=== PATIENT | female | born 1960 | race Two or more races ===

== ENCOUNTER → 2024-06-26 | Outpatient (CLI) | payer MEDICAID, SELFPAY ==
--- NOTE | 2024-06-26 13:22 | XR_ITS ---
Examination: Nuclear medicine kidney imaging flow and function multiple studies Exam date and time: June 26, 2024 1252 hours INDICATIONS: Lower back pain flank pain history right kidney stones removed October 2023 renal insufficiency TECHNIQUE AND FINDINGS: Intravenous ministration 10.5 mCi of MAG3 with flow and function curves generated to 60 minutes Intravenous Lasix 20 mg given 20 minutes after the MAG3 injection Normal flow and function left kidney Mildly reduced flow right kidney, adequate renal function No Lasix effect IMPRESSION: Normal flow and function left kidney Mildly reduced flow right kidney, adequate right renal function
[2024-06-26 14:03] VITALS: BP 151/89; PULSE 69
[2024-06-26] MEDS: FUROSEMIDE INJ 10 MG/ML 4ML VIAL 40 MG IVP (14:03)
== END | disposition home or self-care (01) ==
PROVIDERS: PCP Urology; Referring Provider Urology; Visit Provider Urology
DX: N28.89 Other specified disorders of kidney and ureter (principal)
CPT/HCPCS: 78708; A9562; J1940

== ENCOUNTER 2024-08-20 13:56 | Emergency (ER) | payer MEDICAID, SELFPAY ==
--- NOTE | 2024-08-20 16:32 | PD.EDADULT ---
ED General RME/HPI General Time Seen by Provider: 08/20/24 16:21 Source: patient Arrival date/time: 08/20/24 13:56 89-year-old female presents to the ED with complaint of blood sugars at home she is 15 with a headache and dizziness and examined. Began 4 days ago. Mode of arrival: ambulatory Limitations: no limitations RME / HPI Onset (ago): day(s) (4 days) Severity: moderate Related Data Home Medications ?Medication ?Instructions ?Recorded ?Confirmed atenolol 50 mg tablet 50 mg PO QDAY 09/16/23 09/16/23 empagliflozin 25 mg tablet 25 mg PO QAM 09/16/23 09/16/23 (Jardiance) losartan 100 mg tablet 100 mg PO QDAY 09/16/23 09/16/23 sitagliptin phos 50 mg-metformin 1 tab PO BID 09/16/23 09/16/23 ER 1,000 mg tablet,extend rel 24h mp (Janumet XR) sodium bicarbonate 650 mg tablet 650 mg PO TID 09/16/23 09/16/23 Previous Rx's ?Medication ?Instructions ?Recorded ciprofloxacin HCl 500 mg tablet 500 mg PO BID #14 tabs 09/17/23 (Cipro) ciprofloxacin HCl 500 mg tablet 500 mg PO BID #14 tabs 09/17/23 (Cipro) hydrocodone 5 mg-acetaminophen 325 1 tab PO Q6H PRN pain #30 tabs 09/17/23 mg tablet hydrocodone 5 mg-acetaminophen 325 1 tab PO Q6H PRN pain #30 tabs 09/17/23 mg tablet phenazopyridine 200 mg tablet 200 mg PO TID 6 doses #6 tabs 09/18/23 (Pyridium) sulfamethoxazole 800 1 tab PO BID #14 tabs 12/03/23 mg-trimethoprim 160 mg tablet (Bactrim DS) Allergies Allergy/AdvReac Type Severity Reaction Status Date / Time ampicillin Allergy Severe Hives Verified 12/03/23 15:24 Review of Systems Constitutional Constitutional: Reports system reviewed and no additional complaints, except as documented Eyes Eyes: Reports system reviewed and no additional complaints, except as documented, Denies dry eyes, Denies exophthalmos and Reports floaters Cardiovascular Cardiovascular: Denies chest pain with activity and Denies claudication ED Exam General Limitations: Present no limitations General appearance: Present alert and in no apparent distress Head Head exam: Present atraumatic Eye Eye exam: Present normal appearance, PERRL and EOMI ENT ENT exam: Present normal exam, normal oropharynx and mucous membranes moist Neck Neck exam: Present normal inspection, full ROM and trachea midline Chest Chest inspection: Present normal inspection and symmetric chest wall rise Respiratory Respiratory exam: Present normal lung sounds bilaterally Cardiovascular Cardiovascular exam: Present regular rate, normal rhythm and normal heart sounds Abdominal Exam Abdominal exam: Present soft and normal bowel sounds Rectal Exam Rectal exam: Present deferred Extremities Exam Extremities exam: Present normal inspection and full ROM Back Exam Back exam: Present normal inspection and full ROM Neurological Exam Neurological exam: Present alert, oriented X3 and CN II-XII intact Psychiatric Psychiatric exam: Present normal affect and normal mood Skin Skin exam: Present warm, dry, intact and normal color Course Course Course Narrative: Patient wrapped saline IV as well as 30 mL. Patient will be rechecked with a Accu-Chek. Quality Measures none Orders Category Date Time Status Basic Metabolic Panel Stat Lab 08/20/24 14:45 Completed CBC Stat Lab 08/20/24 14:45 Completed Urinalysis Stat Lab 08/20/24 14:45 Completed Ketorolac Inj [Toradol Inj] Med 08/20/24 16:50 Discontinued 30 mg .ROUTE .STK-MED ONE Ketorolac Inj [Toradol Inj] Med 08/20/24 16:47 Discontinued 30 mg IM X1 ONE Sodium Chloride 0.9% 1000 ml [Ns] 1,000 ml Med 08/20/24 16:45 Discontinued IV Wide Open mls/hr Discharge Plan Plan Patient Disposition: HOME (Self Care) Discharge Disposition comment: Patient will be discharged in no apparent distress Patient condition on transfer: Stable Prescriptions/Referrals Prescriptions/Med Rec: No Action sodium bicarbonate 650 mg Tablet 650 mg PO TID losartan 100 mg Tablet 100 mg PO QDAY atenolol 50 mg Tablet 50 mg PO QDAY Janumet XR 50-1,000 mg Tablet, Er Multiphase 24 Hr 1 tab PO BID Jardiance 25 mg Tablet 25 mg PO QAM hydrocodone-acetaminophen 5-325 mg tablet 1 tab PO Q6H MDD 4 PRN (Reason: pain) Qty: 30 0RF ciprofloxacin HCl [Cipro] 500 mg tablet 500 mg PO BID Qty: 14 0RF hydrocodone-acetaminophen 5-325 mg tablet 1 tab PO Q6H MDD 4 PRN (Reason: pain) Qty: 30 0RF ciprofloxacin HCl [Cipro] 500 mg tablet 500 mg PO BID Qty: 14 0RF phenazopyridine [Pyridium] 200 mg tablet 200 mg PO TID Qty: 6 0RF sulfamethoxazole-trimethoprim [Bactrim DS] 800-160 mg tablet 1 tab PO BID Qty: 14 0RF Referrals: Refugio Amato MD [Primary Care Provider] - In 1 week Problem List Clinical Impression: Hyperglycemia Patient/Caregiver Discharge Instructions Discharge Activity: activity as tolerated Print Language: Persian Stand Alone Forms: Kajal Award Info., Patient Portal Info Letter PA/APPOINTMENT SPECIALIST Supervising Physician PA/APPOINTMENT SPECIALIST Supervising Physician: MANDEEP MARTINEZ MDM Narrative MDM hospital course (for use when minimal MDM required): Patient had a liter of normal saline which significantly lowered her blood sugar down to 05/06/1930. Patient will be discharged to home in no apparent distress. Note that the patient had Toradol which helped with the headache but it did not completely remove it. Clinical Information Provided by: patient Medical Records reviewed None Medical Records additional comments: N/A Meds/Rx considered, not ordered None describe: N/A Labs/Rad/Tests considered, not ordered None Chronic Illness/Social Conditions which may negatively complicate care or outcome(s)-explain: other (Diabetes, hypertension) EKG EKG not done Labs Labs: interpreted by mi Lab(s) Interpretation(s): CBC, CMP, UA Medication Administration(s) Medication Administration History Discontinued Medications Sodium Chloride (Ns) 1,000 mls @ 0 mls/hr IV .Q0M ONE Stop: 08/20/24 16:46 Ketorolac Tromethamine (Ketorolac Inj 30 Mg/Ml Vial) Confirm Administered Dose 30 mg .ROUTE .STK-MED ONE Stop: 08/20/24 16:51 Ketorolac Tromethamine (Ketorolac Inj 30 Mg/Ml Vial) 30 mg IM X1 ONE Stop: 08/20/24 16:48
[2024-08-20] MEDS: SODIUM CHLORIDE 0.9% 1000 ML 1,000 ML 999 ML IV (16:45)
[2024-08-20 17:07] LABS: Collection Type, Urine Clean Catch
[2024-08-20 17:10] LABS: Bilirubin,Urine Negative (Negative); Blood,Urine Trace (Negative); Clarity,Urine Clear (Clear/Hazy); Color,Urine Lt-Yellow (Lt Yel-Yel); Glucose, Urine 4+ (Negative); Ketones,Urine Negative (Negative); Leukocyte Esterase,Urine Negative (Negative); Nitrite,Urine Negative (Negative); Protein,Urine Negative (Neg - Trace); RBC,Urine 1 /hpf (0-3); Specific Gravity,Urine 1.032 (1.001-1.035); Squamous Epithelial Cell,Urine 2 /hpf (0-5); Urobilinogen,Urine Negative mg/dL (0.0-1.0); WBC,Urine 3 /hpf (0-5)
[2024-08-20 17:13] LABS: Anion Gap 9 (7-16); BUN/Creatinine Ratio 13 Ratio (12-20); Blood Urea Nitrogen 15 mg/dL (9-23); Calcium 9.2 mg/dL (8.3-10.6); Carbon Dioxide 28.8 mMol/L (20.0-31.0); Chloride 102 mMol/L (98-107); Creatinine (Component) 1.2 mg/dL (0.6-1.3); Glucose 348 mg/dL (74-106); Osmolality,Calculated 294 (275-295); Potassium 3.9 mMol/L (3.4-5.1); Sodium 140 mMol/L (136-145); eGFR 51 See Note
[2024-08-20 17:14] LABS: Basophils # (Auto) 0.1 Thou/mm3 (0.0-0.2); Basophils % (Auto) 1 % (0-2.5); Eosinophils # (Auto) 0.1 Thou/mm3 (0.0-0.5); Eosinophils % (Auto) 1 % (0-10); Hematocrit 46.4 % (36.0-46.0); Hemoglobin 16.9 g/dL (12.0-16.0); Immature Granulocytes % (Auto) 0 % (0-0); Immature Granulocytes Auto 0.03 Thou/mm3 (0.00-0.00); Lymphocytes # (Auto) 2.4 Thou/mm3 (1.0-4.8); Lymphocytes % (Auto) 26 % (10-50); Mean Corpuscular HGB Conc 36.4 g/dl (31.0-37.0); Mean Corpuscular Hemoglobin 30.4 pg (25.0-35.0); Mean Corpuscular Volume 84 fL (80-100); Monocytes # (Auto) 0.7 Thou/mm3 (0.0-0.8); Monocytes % (Auto) 8 % (0-12); Neutrophils % (Auto) 64 % (37-80); Nucleated Red Blood Cell % 0 /100 WBC (0); Platelet Count 289 Thou/mm3 (140-440); RDW Standard Deviation 35.9 fL (36.4-46.3); Red Blood Count 5.56 Miln/mm3 (4.00-5.20); White Blood Count 9.4 Thou/mm3 (3.6-11.0)
--- NOTE | 2024-08-20 18:06 | PC.NURSE ---
MEDS GIVEN AND DOCUMENTED ON DOWNTIME PAPER WORK
[2024-08-21] MEDS: KETOROLAC INJ 30 MG/ML VIAL IM (14:57)
== END 2024-08-20 18:40 | disposition home or self-care (01) ==
PROVIDERS: Emergency Provider Emergency Medicine; PCP Family Medicine
DX: R73.9 Hyperglycemia, unspecified (principal)
CPT/HCPCS: 36415; 80048; 81001; 85025; 96372; 99284; J1885; J7030

== ENCOUNTER 2024-09-21 10:55 | Emergency (ER) | payer MEDICAID, SELFPAY ==
[2024-09-21 11:08] VITALS: BP 181/92; PULSE 81; RESP 18; TEMP 36.6; O2SAT 95; BMI 32.6
--- NOTE | 2024-09-21 11:18 | XR_ITS ---
Examination: PA lateral chest 2 views TECHNIQUE: Upright PA lateral chest 2 views Date and time: 05/24/1999 2525 hours INDICATIONS: Twisting injury to the chest with left-sided chest pain beginning 4 days ago FINDINGS: Accentuation bronchovascular markings. No significant cardiac enlargement No pneumothorax Prominent osteopenia Ribs and clavicles appear intact No acute thoracic fracture IMPRESSION: No pneumothorax. Basilar bronchitis pattern
--- NOTE | 2024-09-21 11:36 | PD.EDFALL ---
ED Fall Injury RME/HPI General Chief Complaint: Fall Stated Complaint: Pain under left breast/ left rib Time Seen by Provider: 09/21/24 11:08 Arrival date/time: 09/21/24 10:55 Limitations: no limitations RME / HPI RME / HPI Narrative: 64-year-old female with past medical history of hypertension and diabetes presents for evaluation of left chest wall pain x 3 days. She reports that she was bending over to clean a mini refrigerator when she felt a pop in her left rib cage. She describes the pain as constant aching that is focal to her left lower rib cage. She denies fever, hemoptysis, cough, chest pain, nausea, vomiting, weakness, tingling. She was evaluated by her primary care for this concern and was told she did not have a rib fracture. She is here today because her pain has not improved. She has been taking ibuprofen at home with no improvement in symptoms. Place fall occurred: home Loss of consciousness: none Related Data Home Medications ?Medication ?Instructions ?Recorded ?Confirmed atenolol 50 mg tablet 50 mg PO QDAY 09/16/23 09/16/23 empagliflozin 25 mg tablet 25 mg PO QAM 09/16/23 09/16/23 (Jardiance) losartan 100 mg tablet 100 mg PO QDAY 09/16/23 09/16/23 sitagliptin phos 50 mg-metformin 1 tab PO BID 09/16/23 09/16/23 ER 1,000 mg tablet,extend rel 24h mp (Janumet XR) sodium bicarbonate 650 mg tablet 650 mg PO TID 09/16/23 09/16/23 Previous Rx's ?Medication ?Instructions ?Recorded ciprofloxacin HCl 500 mg tablet 500 mg PO BID #14 tabs 09/17/23 (Cipro) ciprofloxacin HCl 500 mg tablet 500 mg PO BID #14 tabs 09/17/23 (Cipro) hydrocodone 5 mg-acetaminophen 325 1 tab PO Q6H PRN pain #30 tabs 09/17/23 mg tablet hydrocodone 5 mg-acetaminophen 325 1 tab PO Q6H PRN pain #30 tabs 09/17/23 mg tablet phenazopyridine 200 mg tablet 200 mg PO TID 6 doses #6 tabs 09/18/23 (Pyridium) sulfamethoxazole 800 1 tab PO BID #14 tabs 12/03/23 mg-trimethoprim 160 mg tablet (Bactrim DS) acetaminophen 325 mg tablet 325 mg PO QID PRN pain #30 tabs 09/21/24 (Aminofen) cyclobenzaprine 5 mg tablet 5 mg PO TID PRN muscle spasm #20 09/21/24 tabs Allergies Allergy/AdvReac Type Severity Reaction Status Date / Time ampicillin Allergy Severe Hives Verified 09/21/24 11:02 Review of Systems Constitutional Constitutional: Denies fever(s), Denies headache(s), Denies lethargy and Denies weakness Eyes Eyes: Denies blurry vision and Denies change in vision ENT Ears, Nose, Mouth, and Throat: Denies facial pain, Denies headache(s) and Denies neck pain Cardiovascular Cardiovascular: Reports chest pain, Denies dyspnea, Denies dyspnea on exertion and Denies orthopnea Respiratory Respiratory: Denies cough, Denies dyspnea, Denies dyspnea on exertion, Denies hemoptysis and Reports pain with cough Gastrointestinal Gastrointestinal: Denies abdominal pain, Denies nausea and Denies vomiting Genitourinary Genitourinary: Denies dysuria and Denies hematuria Musculoskeletal Musculoskeletal: Denies back pain, Denies joint swelling, Denies myalgias, Denies neck pain, Denies numbness and Denies tingling Integumentary/Breasts Skin/Breast: Denies lesions, Denies skin swelling, Denies wounds and Denies breast swelling Neurologic Neurologic: Denies headache(s), Denies numbness, Denies tingling and Denies weakness Past Medical History Past Medical History NEUROLOGIC: Negative Neurological Disorders or Seizures CARDIAC: Positive Cardiac Disorders, Hypercholesterolemia and Hypertension; Negative Congestive Heart Failure RESPIRATORY: Negative Chronic Obstructive Pulmonary Disease (COPD) GASTROINTESTINAL: Negative Gastrointestinal Disorders GENITOURINARY: Positive Genitourinary Disorders and Kidney Stones; Negative Renal Disease REPRODUCTIVE: Positive Previous Pregnancies MUSCULOSKELETAL: Positive Musculoskeletal Disorders and Arthritis ENT: Positive Glaucoma ENDOCRINE: Positive Endocrine Disorders and Diabetes Mellitus Type 2; Negative Diabetes Mellitus Type 1 HEMATOLOGIC: Negative Blood Disorders OTHER HISTORY: Positive Hospitalization, Shingles, Blood Transfusions, Chicken Pox and Measles; Negative Autoimmune Disease, Blood Transfusion Reaction, Anesthesia Reactions or Cancer Family History FAMILY HISTORY: Negative Family Psychiatric Problems, Family Respiratory Disorders, Family Cardiac Disorders, Family Gastrointestinal Problems, Family Cancer, Family Surgery or Family Anesthesia Reaction Surgical History SURGICAL: Positive Hysterectomy Social History SMOKING STATUS: Former smoker ED Exam General Limitations: Present no limitations General appearance: Present alert and in no apparent distress Head Head exam: Present atraumatic and normocephalic Eye Eye exam: Present normal appearance, PERRL and EOMI ENT ENT exam: Present normal oropharynx and mucous membranes moist Neck Neck exam: Present normal inspection and full ROM Chest Chest inspection: Present symmetric chest wall rise and tenderness (Left lateral chest wall tenderness to palpation. No overlying skin changes. No ecchymosis. No crepitus. No obvious deformities.); Absent rash Respiratory Respiratory exam: Present normal lung sounds bilaterally; Absent respiratory distress, wheezes, stridor, accessory muscle use or prolonged expiratory phase Cardiovascular Cardiovascular exam: Present regular rate, normal heart sounds and +S1 Abdominal Exam Abdominal exam: Present soft; Absent distention Extremities Exam Extremities exam: Present normal inspection and full ROM Back Exam Back exam: Present normal inspection and full ROM; Absent muscle spasm, paraspinal tenderness or vertebral tenderness Neurological Exam Neurological exam: Present alert and normal gait Psychiatric Psychiatric exam: Present normal affect Skin Skin exam: Present warm, dry, intact and normal color Course Quality Measures none Orders Category Date Time Status CXR2 [XR chest 2V] Stat Exams 09/21/24 11:18 Completed HYDROcodone*/APAP 7.5/325 [[place] 7.5/325] Med 09/21/24 11:18 Discontinued 1 tab PO X1 ONE Ketorolac Inj [Toradol Inj] Med 09/21/24 11:18 Discontinued 30 mg IM X1 ONE Vital Signs Vital signs: Vital Signs Temperature 97.9 F 09/21/24 11:08 Pulse Rate 81 09/21/24 11:08 Respiratory Rate 18 09/21/24 11:08 Blood Pressure 181/92 H 09/21/24 11:08 Pulse Oximetry (%) 95 09/21/24 11:08 Pulse ox 95% on room air, within normal limits. Fall MDM Narrative MDM Narrative:: 64-year-old female presented for evaluation of chest wall pain. Reports spontaneous onset after bending over a mini fridge. Denies blunt trauma. Vital signs reassuring. No evidence of rib fracture on chest x-ray. Clinical picture does not fit ACS therefore cardiac workup was not performed today. More likely chest wall contusion for which the patient was advised to continue to take analgesics as needed for pain. I advised her to be intentional with taking deep breaths while she is experiencing rib wall pain to avoid pneumonia. Patient agreeable with plan to follow-up with primary care within the week for reevaluation. Patient stable at time of discharge. Patient data External records reviewed:: [facility] previous records Clinical information provided by:: patient Social determinants that could affect healthcare access:: none Patient has the following chronic illnesses:: Diabetes, hypertension, chronic pain. How is presenting disease/condition affected by chronic disease/condition?: no chronic disease Evaluation data The following diagnostics were reviewed and interpreted by me:: radiology exam(s) Lab and/or radiology exams considered but not ordered:: X-ray ordered. Interpretation Summary: X-ray without rib fracture or clavicular fracture. Trachea midline. No consolidations or infiltrates. Medications / Prescriptions Medications or Prescriptions considered but not ordered:: Rx given. Medication administrations:: Medication Administration History Discontinued Medications Hydrocodone Bitart/Acetaminophen (Hydrocodone/Apap 7.5/325 Tablet) 1 tab PO X1 ONE Stop: 09/21/24 11:19 Last Admin: 09/21/24 11:37 Dose: 1 tab Documented By: VAHID Ketorolac Tromethamine (Ketorolac Inj 60 Mg/2 Ml Vial) 30 mg IM X1 ONE Stop: 09/21/24 11:19 Last Admin: 09/21/24 11:37 Dose: 30 mg Documented By: DAA Rx given. Consultations Consultation(s) initiated? (list below): No Diagnosis Fall Differential Diagnosis: compression fracture and other (Rib fracture, pneumonia, neurovascular injury chest wall, ACS.) Most likely diagnosis given after review of the tests above:: Chest wall contusion. Admission Indicated Admission indicated?: not indicated Admission Request Was there a request for admission?: No Disposition Plan Disposition Plan: Discharge Discharge Attestation Discharge Attestation: The patient and all family members were given an opportunity to ask questions and understood the discharge instructions. Discharge instructions specifically effects, indications for sooner follow up or return to the emergency department, and the expected course of current diagnosis. Patient condition: Stable Discharge Plan Plan Patient Disposition: HOME (Self Care) Discharge Disposition comment: stable Prescriptions/Referrals Prescriptions/Med Rec: New cyclobenzaprine 5 mg tablet 5 mg PO TID PRN (Reason: muscle spasm) Qty: 20 0RF acetaminophen [Aminofen] 325 mg tablet 325 mg PO QID PRN (Reason: pain) Qty: 30 0RF No Action sodium bicarbonate 650 mg Tablet 650 mg PO TID losartan 100 mg Tablet 100 mg PO QDAY atenolol 50 mg Tablet 50 mg PO QDAY Janumet XR 50-1,000 mg Tablet, Er Multiphase 24 Hr 1 tab PO BID Jardiance 25 mg Tablet 25 mg PO QAM hydrocodone-acetaminophen 5-325 mg tablet 1 tab PO Q6H MDD 4 PRN (Reason: pain) Qty: 30 0RF ciprofloxacin HCl [Cipro] 500 mg tablet 500 mg PO BID Qty: 14 0RF hydrocodone-acetaminophen 5-325 mg tablet 1 tab PO Q6H MDD 4 PRN (Reason: pain) Qty: 30 0RF ciprofloxacin HCl [Cipro] 500 mg tablet 500 mg PO BID Qty: 14 0RF phenazopyridine [Pyridium] 200 mg tablet 200 mg PO TID Qty: 6 0RF sulfamethoxazole-trimethoprim [Bactrim DS] 800-160 mg tablet 1 tab PO BID Qty: 14 0RF Problem List Clinical Impression: Bronchitis, Chest wall pain Patient/Caregiver Discharge Instructions Education Materials: ED Chest Pain, Noncardiac Additional Instructions: Take Flexeril every 8 hours as needed for muscle spasm. Take Tylenol alternate with ibuprofen every 6 hours for pain for the next 3 to 4 days. Use the spirometer 3 times per hour for the next x 1 week. Follow-up with primary care for reevaluation within 3 to 4 days. Return to the ED if your symptoms worsen or change. Print Language: Ukrainian Stand Alone Forms: Kajal Award Info., Patient Portal Info Letter PA/CARLOS Supervising Physician PA/CARLOS Supervising Physician: Dr. Coates
[2024-09-21] MEDS: HYDROcodone/APAP 7.5/325 TABLET 1 TAB PO (11:37)
[2024-09-21] MEDS: KETOROLAC INJ 60 MG/2 ML VIAL 30 MG IM (11:37)
[2024-09-21 13:26] VITALS: BP 146/88; PULSE 70; RESP 16; TEMP 36.7; O2SAT 97
== END 2024-09-21 13:35 | disposition home or self-care (01) ==
PROVIDERS: Emergency Provider Emergency Medicine; PCP Family Medicine
DX: J40 Bronchitis, not specified as acute or chronic (principal); Z87.891 Personal history of nicotine dependence
CPT/HCPCS: 71046; 96372; 99283; J1885; A9270

== ENCOUNTER 2024-10-09 11:17 | Observation (INO) | payer MEDICAID, SELFPAY ==
[2024-10-09] VITALS (11 sets, daily range): BP systolic 146–190; BP diastolic 77–99; PULSE 58–81; RESP 14–98; TEMP 36.1–37; O2SAT 97–98; BMI 33.0; BMI 33.8; BMI 33.7
--- NOTE | 2024-10-09 | XR_ITS ---
Examinations: MRI Brain without intravenous contrast. MRA brain without intravenous contrast. MRA carotids without intravenous contrast 3-D vascular reconstructions Date and time of exam: October 09, 2024, 1757 hours INDICATIONS: Stroke. This morning, high blood pressure, onset headache dizziness beginning 3:00 AM with nausea Technique: Multiple axial and sagittal images of the brain have been obtained MRA brain carotid images without contrast obtained, including 3-D postprocessing, vascular maximum intensity projection images Findings: Sell[place] is not enlarged. The optic chiasm and infundibular stalk are not remarkable. Prepontine and interpeduncular cisterns are not enlarged. No localized enlargement of the medulla or niurka. Fourth ventricle and cerebellar tonsils normal in position. Subacute hemorrhage is not seen. Fourth ventricle is midline. Mass in the cerebellopontine angle region is not evident. 7th and 8th nerve complexes exhibits symmetry. Globes are symmetrical with no retro-orbital mass. Increased white matter signal moderate Diffusion-weighted images demonstrate no focus of restricted diffusion Mass-effect upon the ventricular system is not identified. MRA carotid images no significant carotid stenoses. MRA brain images no large vessel occlusions Impression: Negative for acute hemorrhage, mass effect or midline shift No acute infarct Moderate chronic microvascular white matter change No significant carotid stenoses No cerebral large vessel arterial occlusions
--- NOTE | 2024-10-09 11:25 | PC.NURSE ---
PT COMING IN FROM ED LOBBY WITH INITIAL COMPLAINT OF DIZZINESS WITH THE FEELING OF THE ROOM IS SPINNING SINCE 0300 TODAY. PT DENIES FEELING DIZZY PRIOR TO SLEEPING AT 00:00 LAST NIGHT; LKN @ 00:00 10/09/24. PT ALSO C/O NAUSEA WITH NO VOMITING AND GENERALIZED WEAKNESS. PT DENIES ANY PREVIOUS EPISODES OF THIS DIZZINESS. PMH HIGH BP, HIGH CHOLESTEROL, DM.
--- NOTE | 2024-10-09 11:28 | XR_ITS ---
Examination: CTA carotids with intravenous contrast CTA brain, head with intravenous contrast. 2-D sagittal, coronal reconstructions. 3-D reconstructions. Exam date and time: October 09, 2024 1138 hours INDICATIONS: Stroke alert, onset focal neurologic deficit today CTDI: vol (mGy) 29.7 DLP: (mGycm) 420 Technique: Multiple CTA axial brain, head carotid images post intravenous contrast injection 75 cc, [id number]. 2-D sagittal, coronal reconstructions. 3-D reconstructions, 3-D post processing including vascular maximum intensity projection images. Low dose protocols were performed. One or more of the following dose reduction techniques were used; automated exposure control, adjustment of the mA and/or KV according to patient size, use of iterative reconstruction technique. Findings: No significant common carotid carotid bifurcation or internal carotid artery stenoses Dominant right vertebral artery with no critical stenoses No cerebral large vessel arterial occlusions, thrombus, dissection or cerebral aneurysm IMPRESSION: No significant neck arterial stenoses No cerebral large vessel arterial occlusions thrombus dissection or cerebral aneurysm
--- NOTE | 2024-10-09 11:28 | XR_ITS ---
Examination: CT brain head without contrast. 2-D sagittal coronal reconstructions Date and time of exam:10/09/2024 1133 am CTDI: vol (mGy):50 DLP: (mGycm):941 Technique: Multiple CT axial sections of the brain have been obtained, 5 mm slice thickness. Contrast has not been administered. 2-D sagittal, coronal reconstructions have been obtained Low dose protocols were performed. One or more of the following dose reduction techniques were used; automated exposure control, adjustment of the mA and/or KV according to patient size, use of iterative reconstruction technique. Findings: No significant ventricular enlargement. Intra-axial or extra-axial hemorrhage density is not seen. No mass effect or midline shift Basal cisterns are not remarkable. Fourth ventricle is midline. Cranial vault intact. Impression: Negative for acute hemorrhage, mass effect or midline shift
--- NOTE | 2024-10-09 11:28 | EKG_ITS ---
[facility] Test Date: 2024-10-09 Pat Name: TIN MACEDO Department: Room: - Gender: Female [employer]: : 1960 Requested By: Frank Corrales Order Number: [id number] Reading MD: Frank Corrales Measurements Intervals [place] Rate: 62 P: 37 DC: 183 QRS: -33 QRSD: 98 T: 67 QT: 455 QTc: 464 Interpretive Statements SINUS RHYTHM LEFT AXIS DEVIATION [QRS AXIS < -30] PATTERN CONSISTENT WITH PULMONARY DISEASE Compared to ECG 09/16/2023 11:54:22 No significant changes /store/S0/[id number]
--- NOTE | 2024-10-09 11:37 | PD.EDDIZZY ---
ED Dizzyness RME/HPI General Chief Complaint: Dizziness Stated Complaint: DIZZY TODAY SINCE 299, AND HIGH B/P Time Seen by Provider: 10/09/24 11:28 Arrival date/time: 10/09/24 11:17 Limitations: no limitations RME / HPI RME / HPI Narrative: 64 year old female with history of hypertension and diabetes presents to the ED for evaluation of dizziness beginning at 03:00 AM today. Described as room-spinning sensation accompanied by feeling off-balanced while walking. Additionally complains of a headache also beginning at 03:00 AM and nausea. States she had checked her blood pressure during that time that was elevated at 186/100. Denies any history of similar dizziness. Denies change in vision or loss of sensation/movement. No other associated symptoms reported. LKW at 22:00 hours yesterday 10/08/2024. Related Data Home Medications ?Medication ?Instructions ?Recorded ?Confirmed atenolol 50 mg tablet 50 mg PO QDAY 09/16/23 09/16/23 empagliflozin 25 mg tablet 25 mg PO QAM 09/16/23 09/16/23 (Jardiance) losartan 100 mg tablet 100 mg PO QDAY 09/16/23 09/16/23 sitagliptin phos 50 mg-metformin 1 tab PO BID 09/16/23 09/16/23 ER 1,000 mg tablet,extend rel 24h mp (Janumet XR) sodium bicarbonate 650 mg tablet 650 mg PO TID 09/16/23 09/16/23 Previous Rx's ?Medication ?Instructions ?Recorded ciprofloxacin HCl 500 mg tablet 500 mg PO BID #14 tabs 09/17/23 (Cipro) ciprofloxacin HCl 500 mg tablet 500 mg PO BID #14 tabs 09/17/23 (Cipro) hydrocodone 5 mg-acetaminophen 325 1 tab PO Q6H PRN pain #30 tabs 09/17/23 mg tablet hydrocodone 5 mg-acetaminophen 325 1 tab PO Q6H PRN pain #30 tabs 09/17/23 mg tablet phenazopyridine 200 mg tablet 200 mg PO TID 6 doses #6 tabs 09/18/23 (Pyridium) sulfamethoxazole 800 1 tab PO BID #14 tabs 12/03/23 mg-trimethoprim 160 mg tablet (Bactrim DS) acetaminophen 325 mg tablet 325 mg PO QID PRN pain #30 tabs 09/21/24 (Aminofen) cyclobenzaprine 5 mg tablet 5 mg PO TID PRN muscle spasm #20 09/21/24 tabs Allergies Allergy/AdvReac Type Severity Reaction Status Date / Time ampicillin Allergy Severe Hives Verified 10/09/24 11:20 Review of Systems Review of Systems Systems Reviewed: All systems reviewed, normal except as documented Past Medical History Past Medical History CARDIAC: Positive Cardiac Disorders, Hypercholesterolemia and Hypertension GENITOURINARY: Positive Genitourinary Disorders and Kidney Stones REPRODUCTIVE: Positive Previous Pregnancies MUSCULOSKELETAL: Positive Musculoskeletal Disorders and Arthritis ENT: Positive Glaucoma ENDOCRINE: Positive Endocrine Disorders and Diabetes Mellitus Type 2 OTHER HISTORY: Positive Hospitalization, Shingles, Blood Transfusions, Chicken Pox and Measles Family History FAMILY HISTORY: Negative Family Psychiatric Problems, Family Respiratory Disorders, Family Cardiac Disorders, Family Gastrointestinal Problems, Family Cancer, Family Surgery or Family Anesthesia Reaction Surgical History SURGICAL: Positive Hysterectomy Social History SMOKING STATUS: Never smoker ED Exam General Limitations: Present no limitations General appearance: Present alert and in no apparent distress Head Head exam: Present atraumatic, normocephalic and normal inspection Eye Eye exam: Present normal appearance, PERRL and EOMI ENT ENT exam: Present normal exam, normal oropharynx and mucous membranes moist Neck Neck exam: Present normal inspection, full ROM and trachea midline Chest Chest inspection: Present normal inspection and symmetric chest wall rise Respiratory Respiratory exam: Present normal lung sounds bilaterally Cardiovascular Cardiovascular exam: Present regular rate, normal rhythm and normal heart sounds Abdominal Exam Abdominal exam: Present soft and normal bowel sounds Extremities Exam Extremities exam: Present normal inspection and full ROM Back Exam Back exam: Present normal inspection and full ROM Neurological Exam Neurological exam: Present alert, oriented X3, CN II-XII intact and reflexes normal; Absent motor sensory deficit Expanded Neurological Exam Patient oriented to: Present person, place and time Speech: Present fluid speech Psychiatric Psychiatric exam: Present normal affect and normal mood Skin Skin exam: Present warm, dry, intact and normal color Course Quality Measures Suspected type of Stroke: Non Acute Last known well (date): 10/08/24 Last known well (time): 21:00 Tenecteplase given: Reason(s) TPA not given: Outside the time window not given stroke Orders Category Date Time Status Bedside Blood Glucose NOW Care 10/09/24 11:28 Active COVID-19 Screening Questionnaire NOW Care 10/09/24 14:42 Active Ballistic Technician NOW Care 10/09/24 11:28 Active Continuous Pulse Oximetry NOW Care 10/09/24 11:28 Active Decision to Admit X1 Care 10/09/24 14:42 Completed EKG (ED ONLY) *Do not use* NOW Care 10/09/24 11:28 Completed In and Out Catheter NEEDED Care 10/09/24 11:28 Active Insert IV NOW Care 10/09/24 11:28 Active NIH Stroke Scale now Care 10/09/24 11:28 Active NPO NOW Care 10/09/24 11:28 Active Neuro Check Q15MIN Care 10/09/24 11:28 Active Nurse Swallow Screen x1 Care 10/09/24 11:28 Active Consult to Neurology / Tele-Neurology Routine Cons 10/09/24 11:[address] angio stroke protocol Stat Exams 10/09/24 11:[address] stroke protocol Stat Exams 10/09/24 11:28 Completed EKG (ED Only) Stat Exams 10/09/24 11:28 Draft Alcohol, Blood Medical Stat Lab 10/09/24 11:52 Completed Arterial Blood Gas Stat Lab 10/09/24 11:28 Ordered B-Type Natriuretic Peptide Stat Lab 10/09/24 11:52 Completed CBC Stat Lab 10/09/24 11:52 Completed Comprehensive Metabolic Panel Stat Lab 10/09/24 11:52 Completed Drug Screen,Urine Stat Lab 10/09/24 15:00 Received Magnesium Stat Lab 10/09/24 11:52 Completed Partial Thromboplastin Time Stat Lab 10/09/24 11:52 Completed Prothrombin Time with INR Stat Lab 10/09/24 11:52 Completed Troponin I Stat Lab 10/09/24 11:52 Completed Urinalysis Stat Lab 10/09/24 15:00 Completed Urine Culture Stat Lab 10/09/24 15:00 Received Dexamethasone Inj [Decadron Inj] Med 10/09/24 13:30 Discontinued 10 mg IV X1 ONE Ondansetron Inj [Zofran Inj] Med 10/09/24 11:28 Active 4 mg IVP Q4HR PRN Sodium Chloride 0.9% 1000 ml [Ns] 1,000 ml Med 10/09/24 11:30 Active IV Q10H Oxygen Delivery NOW RT 10/09/24 11:28 Active Vital Signs Vital signs: Vital Signs Pulse Rate 81 10/09/24 11:23 Respiratory Rate 17 10/09/24 11:23 Blood Pressure 190/97 H 10/09/24 11:23 Pulse Oximetry (%) 97 10/09/24 11:23 Oxygen Delivery Method Room Air 10/09/24 11:23 Pulse ox is 97% on room air which is adequate. Dizziness MDM Narrative MDM Narrative:: Selene Tang am scribing for and in the presence of Dr. Ruth. Patient data External records reviewed:: [facility] previous records (I reviewed ED Visit on 09/21/2024 ) Clinical information provided by:: patient Social determinants that could affect healthcare access:: none Patient has the following chronic illnesses:: HTN, DM How is presenting disease/condition affected by chronic disease/condition?: exacerbated by Evaluation data The following diagnostics were reviewed and interpreted by me:: lab results, radiology exam(s) and EKG tracing(s) (10/09/2024 NSR, rate 62, left axis deviation, no STEMI ) Lab and/or radiology exams considered but not ordered:: None Interpretation Summary: Ordering Physician: Frank Ruth MD Date of Service: 10/09/24 Procedure(s): CT stroke protocol Accession Number(s): [id number] cc: Frank Ruth MD; Nakul German MD~ Examination: CT brain head without contrast. 2-D sagittal coronal reconstructions Date and time of exam:10/09/2024 1133 am CTDI: vol (mGy):50 DLP: (mGycm):941 Technique: Multiple CT axial sections of the brain have been obtained, 5 mm slice thickness. Contrast has not been administered. 2-D sagittal, coronal reconstructions have been obtained Low dose protocols were performed. One or more of the following dose reduction techniques were used; automated exposure control, adjustment of the mA and/or KV according to patient size, use of iterative reconstruction technique. Findings: No significant ventricular enlargement. Intra-axial or extra-axial hemorrhage density is not seen. No mass effect or midline shift Basal cisterns are not remarkable. Fourth ventricle is midline. Cranial vault intact. Impression: Negative for acute hemorrhage, mass effect or midline shift Dictated By: Nakul German MD Signed By: <Electronically signed by Nakul German MD in OV> 10/09/24 1138 Ordering Physician: Frank Ruth MD Date of Service: 10/09/24 Procedure(s): CT angio stroke protocol Accession Number(s): [id number] cc: Frank Ruth MD; Nakul German MD~ Examination: CTA carotids with intravenous contrast CTA brain, head with intravenous contrast. 2-D sagittal, coronal reconstructions. 3-D reconstructions. Exam date and time: October 09, 2024 1138 hours INDICATIONS: Stroke alert, onset focal neurologic deficit today CTDI: vol (mGy) 29.7 DLP: (mGycm) 420 Technique: Multiple CTA axial brain, head carotid images post intravenous contrast injection 75 cc, [id number]. 2-D sagittal, coronal reconstructions. 3-D reconstructions, 3-D post processing including vascular maximum intensity projection images. Low dose protocols were performed. One or more of the following dose reduction techniques were used; automated exposure control, adjustment of the mA and/or KV according to patient size, use of iterative reconstruction technique. Findings: No significant common carotid carotid bifurcation or internal carotid artery stenoses Dominant right vertebral artery with no critical stenoses No cerebral large vessel arterial occlusions, thrombus, dissection or cerebral aneurysm IMPRESSION: No significant neck arterial stenoses No cerebral large vessel arterial occlusions thrombus dissection or cerebral aneurysm Dictated By: Nakul German MD Signed By: <Electronically signed by Nakul German MD in OV> 10/09/24 1212 Medications / Prescriptions Medications or Prescriptions considered but not ordered:: None Medication administrations:: Medication Administration History Sodium Chloride (Ns) 1,000 mls @ 100 mls/hr IV Q10H ALLAN Stop: 11/08/24 11:29 Last Admin: 10/09/24 12:16 Dose: 100 mls/hr Documented By: GM Ondansetron HCl (Ondansetron Inj 2 Mg/Ml Inj 2 Ml) 4 mg IVP Q4HR PRN PRN Reason: NAUSEA OR VOMITING Stop: 11/08/24 11:27 Last Admin: 10/09/24 12:11 Dose: 4 mg Documented By: GM Discontinued Medications Dexamethasone Sodium Phosphate (Dexamethasone Sod Phos Inj 10 Mg/Ml Vial) 10 mg IV X1 ONE Stop: 10/09/24 13:31 See above Consultations Consultation(s) initiated? (list below): Yes Consultation #1 (Physician, Specialty, Details): I spoke with teleneuro Dr. Sher. States patient is not a TNK candidate given her LKW is above the 4.5 window. Time: 12:50 Diagnosis Most likely diagnosis given after review of the tests above:: Acute CVA Admission Indicated Admission indicated?: indicated Admission Request Was there a request for admission?: Yes Admission Attestation Admission request attestation: Discussed case with [] from Hospitalist service regarding admission. Discussed patients ED course, exam findings, labs, and radiology results. The Hospitalist [agrees,declines] to accept the patient for admission. Disposition Plan Disposition Plan: Admit Critical Care Time Critical Care Time Critical Care Time: Yes Total Critical Care Time (min.): 35 Attestation: The high probability of sudden, clinically significant deterioration in the patient's condition required the highest level of my preparedness to intervene urgently. The services I provided to this patient were to treat and/or prevent clinically significant deterioration. Services included the following: chart data review, reviewing nursing notes and/or old charts, documentation time, human capital consultant collaboration regarding findings and treatment options, medication orders and management, direct patient care, vital sign assessments and ordering, interpreting and reviewing diagnostic studies and lab tests. Aggregate critical care time includes only time during which I was engaged in work directly related to the patient's care, as described above, whether at bedside or elsewhere in the Emergency Department. It did not include time spent performing other reported procedures or the services of residents, students, nurses or physician assistants. Discharge Plan Plan Patient Disposition: Admit Acute Care w/in Hospital Prescriptions/Referrals Prescriptions/Med Rec: No Action sodium bicarbonate 650 mg Tablet 650 mg PO TID losartan 100 mg Tablet 100 mg PO QDAY atenolol 50 mg Tablet 50 mg PO QDAY Janumet XR 50-1,000 mg Tablet, Er Multiphase 24 Hr 1 tab PO BID Jardiance 25 mg Tablet 25 mg PO QAM hydrocodone-acetaminophen 5-325 mg tablet 1 tab PO Q6H MDD 4 PRN (Reason: pain) Qty: 30 0RF ciprofloxacin HCl [Cipro] 500 mg tablet 500 mg PO BID Qty: 14 0RF hydrocodone-acetaminophen 5-325 mg tablet 1 tab PO Q6H MDD 4 PRN (Reason: pain) Qty: 30 0RF ciprofloxacin HCl [Cipro] 500 mg tablet 500 mg PO BID Qty: 14 0RF cyclobenzaprine 5 mg tablet 5 mg PO TID PRN (Reason: muscle spasm) Qty: 20 0RF acetaminophen [Aminofen] 325 mg tablet 325 mg PO QID PRN (Reason: pain) Qty: 30 0RF phenazopyridine [Pyridium] 200 mg tablet 200 mg PO TID Qty: 6 0RF sulfamethoxazole-trimethoprim [Bactrim DS] 800-160 mg tablet 1 tab PO BID Qty: 14 0RF Referrals: Refugio Amato MD [Primary Care Provider] - In 1 week Problem List Clinical Impression: Acute cerebrovascular accident (CVA) Patient/Caregiver Discharge Instructions Print Language: Turkish Stand Alone Forms: [facility] Award Info., Patient Portal Info Letter
[2024-10-09] MEDS: ONDANSETRON INJ 2 MG/ML INJ 2 ML 4 MG IVP (12:11)
[2024-10-09] MEDS: SODIUM CHLORIDE 0.9% 1000 ML 1,000 ML 100 ML IV (12:16)
[2024-10-09 12:22] LABS: Basophils # (Auto) 0.1 Thou/mm3 (0.0-0.2); Basophils % (Auto) 1 % (0-2.5); Eosinophils # (Auto) 0.2 Thou/mm3 (0.0-0.5); Eosinophils % (Auto) 2 % (0-10); Hematocrit 43.9 % (36.0-46.0); Hemoglobin 16.4 g/dL (12.0-16.0); Immature Granulocytes Auto 0.02 Thou/mm3 (0.00-0.00); Lymphocytes # (Auto) 2.6 Thou/mm3 (1.0-4.8); Lymphocytes % (Auto) 31 % (10-50); Mean Corpuscular HGB Conc 37.4 g/dl (31.0-37.0); Mean Corpuscular Hemoglobin 30.3 pg (25.0-35.0); Mean Corpuscular Volume 81 fL (80-100); Monocytes # (Auto) 0.7 Thou/mm3 (0.0-0.8); Monocytes % (Auto) 8 % (0-12); Neutrophils # (Auto) 4.9 Thou/mm3 (1.8-7.7); Neutrophils % (Auto) 58 % (37-80); Nucleated Red Blood Cell # 0.00 Thou/mm3 (0.00-0.00); Nucleated Red Blood Cell % 0 /100 WBC (0); Platelet Count 243 Thou/mm3 (140-440); RDW Standard Deviation 34.5 fL (36.4-46.3); Red Blood Count 5.41 Miln/mm3 (4.00-5.20); White Blood Count 8.5 Thou/mm3 (3.6-11.0)
[2024-10-09 12:25] LABS: INR 1.0 (0.9-1.3); Partial Thromboplastin Time 26.5 Seconds (22.0-36.0); Prothrombin Time 10.6 Seconds (9.0-12.2)
[2024-10-09 12:30] LABS: Alanine Aminotransferase 41 U/L (10-49); Albumin, Serum 4.2 gm/dL (3.4-4.8); Albumin/Globulin Ratio 1.4 (1.2-2.2); Alcohol, Blood Medical < 10.0 mg/dL (0-10.0); Alkaline Phosphatase 110 U/L (46-116); Anion Gap 11 (7-16); Aspartate Amino Transferase 32 U/L (0-34); BUN/Creatinine Ratio 11 Ratio (12-20); Bilirubin,Total 1.0 mg/dL (0.3-1.2); Blood Urea Nitrogen 10 mg/dL (9-23); Calcium 9.5 mg/dL (8.3-10.6); Calcium (Corrected) 9.5 mg/dL (8.5-10.1); Carbon Dioxide 26.9 mMol/L (20.0-31.0); Chloride 104 mMol/L (98-107); Creatinine (Component) 0.9 mg/dL (0.6-1.3); Estimated Creatinine Clearance 61.0 mL/min (>60); Globulin 2.9 gm/dL (2.3-3.5); Glucose 270 mg/dL (74-106); Magnesium 2.0 mg/dL (1.6-2.6); Osmolality,Calculated 292 (275-295); Potassium 4.0 mMol/L (3.4-5.1); Sodium 142 mMol/L (136-145); Total Protein 7.1 gm/dL (5.7-8.2); Troponin I < 0.002 ng/mL (0.0-0.045); eGFR > 60 See Note
--- NOTE | 2024-10-09 12:50 | PD.TNEURO ---
Tele Neuro Consultation Consultation Date 10/09/24 Most Recent Vital Signs Last Vital Signs Temp 98.6 F 10/09/24 11:27 Pulse 76 10/09/24 12:17 Resp 15 10/09/24 12:17 BP 170/99 H 10/09/24 11:27 Pulse Ox 98 10/09/24 11:27 O2 Del Method Room Air 10/09/24 11:27 Laboratory-Coagulation Panel PT 10.6 Seconds (9.0-12.2) 10/09/24 11:52 INR 1.0 (0.9-1.3) 10/09/24 11:52 APTT 26.5 Seconds (22.0-36.0) 10/09/24 11:52 Consultation Narrative [facility] Tele[facility]urology Consult Services Patient Name:???Shoshana Church Date of :???1960 Identification Number:??? Date of Service:???10/09/2024 11:28:39 Diagnosis:?R42 - Dizziness/ Vertigo/ Giddiness Impression: ?64yo woman w/PMH of HTN, DM p/w dizziness on 10/09/24. Her son saw her get up at 03:00 and she did not look right. She reported dizziness which persists so they came to the ED. She last felt normal when she went to sleep at 21:00 on 10/08/24. She also notes nausea. She otherwise denies complaints or prior episodes. NIHSS 1 for right arm sensory loss. CT Head has no acute findings per radiology. Pt is not a candidate for thrombolytics due to being out of the 4.5 hour window. CTA Head/Neck shows no acute large vessel occlusion. Presentation is concerning for acute small vessel ischemic stroke based on history and exam, MRI Brain advised. Other possibilities include peripheral vertigo, vestibular migraine, infectious or metabolic encephalopathy Our recommendations are outlined below. Recommendations: ? Stroke/Telemetry Floor ? Neuro Checks (Q4) ? Bedside Swallow Eval ? DVT Prophylaxis ? IV Fluids, Normal Saline ? Head of Bed 30 Degrees ? Euglycemia and Avoid Hyperthermia (PRN Acetaminophen) ? Bolus with Clopidogrel 300 mg bolus x1 and initiate dual antiplatelet therapy with Aspirin 81 mg daily and Clopidogrel 75 mg daily ? Antihypertensives PRN if Blood pressure is greater than 220/120 or there is a concern for End organ damage/contraindications for permissive HTN. If blood pressure is greater than 220/120 give labetalol PO or IV or Vasotec IV with a goal of 15% reduction in BP during the first 24 hours. ?Routine MRI Brain without contrast to assess for stroke ?TTE (if not recently done) ?Lipid Profile, A1C ?PT/OT, Speech/Swallow evaluation ?Meclizine 25mg TID prn for vertigo ?Zofran prn for nausea Sign Out: ? Discussed with Emergency Department Provider, left message [facility]: CTA Head and Neck Completed. LVO:No Patient is not a candidate for CORETTA Metrics: Last Known Well: 10/08/2024 21:00:00 Dispatch Time: 10/09/2024 11:28:39 Arrival Time: 10/09/2024 11:17:00 Initial Response Time: 10/09/2024 11:39:49Symptoms: dizziness. Initial patient interaction: 10/09/2024 11:45:39 NIHSS Assessment Completed: 10/09/2024 11:50:34Patient is not a candidate for Thrombolytic. Thrombolytic Medical Decision: 10/09/2024 11:50:35Patient was not deemed candidate for Thrombolytic because of following reasons: LKW outside 4.[address] Head: I personally reviewed all the CT images that were available to me and it showed: no acute findings Primary Provider Notified of Diagnostic Impression and Management Plan on: 10/09/2024 12:50:03 History of Present Illness:Patient is a 64 year old Female. Patient was brought by private transportation with symptoms of dizziness. 64yo woman w/PMH of HTN, DM p/w dizziness on 10/09/24. Her son saw her get up at 03:00 and she did not look right. She reported dizziness which persists so they came to the ED. She last felt normal when she went to sleep at 21:00 on 10/08/24. She also notes nausea. She otherwise denies complaints or prior episodes. Past Medical History: Other PMH:? see hpi Medications: No Anticoagulant use? No Antiplatelet use Reviewed EMR for current medications Allergies:? Reviewed Social History: Drug Use: No Family History: There is no family history of premature cerebrovascular disease pertinent to this consultation ROS : 14 Points Review of Systems was performed and was negative except mentioned in HPI. Past Surgical History: There Is No Surgical History Contributory To Today?s Visit Examination: BP(178/100),?Pulse(80), 1A: Level of Consciousness - Alert; keenly responsive?+ 0 1B: Ask Month and Age - Both Questions Right?+ 0 1C: Blink Eyes & Squeeze Hands - Performs Both Tasks?+ 0 2: Test Horizontal Extraocular Movements - Normal?+ 0 3: Test Visual Emery - No Visual Loss?+ 0 4: Test Facial Palsy (Use Grimace if Obtunded) - Normal symmetry?+ 0 5A: Test Left Arm Motor Drift - No Drift for 10 Seconds?+ 0 5B: Test Right Arm Motor Drift - No Drift for 10 Seconds?+ 0 6A: Test Left Leg Motor Drift - No Drift for 5 Seconds?+ 0 6B: Test Right Leg Motor Drift - No Drift for 5 Seconds?+ 0 7: Test Limb Ataxia (FNF/Heel-Barcenas) - No Ataxia?+ 0 8: Test Sensation - Normal; No sensory loss?+ 0 9: Test Language/Aphasia - Normal; No aphasia?+ 0 10: Test Dysarthria - Normal?+ 0 11: Test Extinction/Inattention - No abnormality?+ 0 NIHSS Score:?0 Pre-Morbid Modified [place] Scale:0 Points = No symptoms at all Spoke with :?ED MD This consult was conducted in real time using interactive audio and video technology. Patient was informed of the technology being used for this visit and agreed to proceed. Patient located in hospital and provider located at home/office setting. Patient is being evaluated for possible acute neurologic impairment and high probability of imminent or life-threatening deterioration. I spent total of 35 minutes providing care to this patient, including time for face to face visit via telemedicine, review of medical records, imaging studies and discussion of findings with providers, the patient and/or family. Dr Roshan Sher [facility] For Inpatient follow-up with [facility] physician please call [facility] at . As we are not an outpatient service for any post hospital discharge needs please contact the hospital for assistance. If you have any questions for the [facility] physicians or need to reconsult for clinical or diagnostic changes please contact us via [facility] at .
--- NOTE | 2024-10-09 12:56 | PC.NURSE ---
PER DR. RAFI NEWTON (TELENEUROLOGIST), NIH SCORE IS A ZERO AT THIS TIME; PT NOT A CANDIDATE FOR TNK.
[2024-10-09 13:27] LABS: B-Type Natriuretic Peptide 51 pg/mL (0-100)
[2024-10-09 15:20] LABS: Collection Type, Urine Catheter
[2024-10-09 15:27] LABS: Bacteria,Urine Rare; Bilirubin,Urine Negative (Negative); Blood,Urine Negative (Negative); Clarity,Urine Clear (Clear/Hazy); Color,Urine Lt-Yellow (Lt Yel-Yel); Glucose, Urine 1+ (Negative); Ketones,Urine Negative (Negative); Leukocyte Esterase,Urine Negative (Negative); Nitrite,Urine Negative (Negative); PH,Urine 6.5 (5.0-7.0); Protein,Urine Negative (Neg - Trace); RBC,Urine 4 /hpf (0-3); Specific Gravity,Urine 1.050 (1.001-1.035); Squamous Epithelial Cell,Urine 1 /hpf (0-5); Urobilinogen,Urine Negative mg/dL (0.0-1.0); WBC,Urine 6 /hpf (0-5)
[2024-10-09 15:39] LABS: Amphetamine/Methamp Scrn,U Negative (Negative); Barbiturate Screen,Urine Negative (Negative); Benzodiazepines Screen,Urine Negative (Negative); Benzoylecgonine Screen, Ur Negative (Negative); Fentanyl Screen,Urine Negative (Negative); Opiate Screen,Urine Negative (Negative); THC Screen,Urine Negative (Negative)
--- NOTE | 2024-10-09 16:12 | ESHP_ITS ---
<Statement entered by Enzo Schreiber MD - 10/14/24 11:45> I reviewed above note and agree with findings and plans. I have also personally examined the patient with medicine team and went over assessment and plan with medical team including international trade teacher and resident physician. Documentation for date of: 10/09/24 HPI History of Present Illness Chief complaint: Dizziness, blurry vision, right sided upper extremity hemiparesis History of present illness: CC: Dizziness and right upper extremity paresthesia Patient is a 64 year female patient with a PMHx of HTN, HLD, and non-insulin dependent type II diabetes. Patient presented to the ED with chief complaint of dizziness, blurry vision, and nausea. Patient stated that she was at baseline when she went to sleep 10/08 21:00. Patient stated that symptoms started 10/09/2024 at approximately 3:00 am when she woke up to use the restroom when she noted symptoms. Upon evaluation, patient continued to endorse blurry vision and nausea. Patient noted occipital headache with radiation to the forehead. Patient endorsed decreased sensation in the right upper extremity. Patient denied previous similar episodes and family history of CVA or cardiac events. Patient denied history of seizures. Patient denied chest pain, SOB, and palpitations. Patient denied vomiting. Denied syncope. Denied head Trauma. ED Course: Vitals: BP 197/77 Pulse 81 RR 17 T 98.6. Nurse NIHSS 1 WBC (10/09/2024): 8.5 Glucose 270 Troponin <0.002 BNP 51 UA Positive Glucose, Negative Esterase, WBC 6 Utox: Negative CT Head: Negative for acute hemorrhage or mass or midline shift Head/Neck CTA NO significan neck arterial stenoses Tele-Neuro Consultation: Clopigogrel 300 mg bolus X 1-->Aspirin and Plavix , MRI, Meclizine, permissive HTN -->Tele Neuro NIHSS 0 NPO-until patient passes nurse swallow, please PMHx: same as above Home medications: Atenolol 50 mg PO QD, Losartan 100 mg PO QD, Janumet XR 1 tablet PO BID, Jardiance 25 mg PO QAM, Cyclobenzaprine 5 mg TID PRN, Sodium Bicarbonate 650 mg PO TID PSHx: Transabdominal hysterectomy; Cystoscopy and multiple ESWL, most recent 09/2023 SH: Denies drug use Allergies: Ampicillin (hives) FH: No family history of CVA or cardiac events. Paternal Parent history of HTN Code status: Full code Review of Systems Review of Systems Narrative Review of Systems: General appearance: NO weight change, NO fatigue, NO weakness, NO fever, NO chills, NO night sweats, No cough Skin: NO rash, NO itching, NO sores, NO moles HEENT: NO Trauma, YES nausea, NO vomiting, NO visual changes, Yes blurry vision, NO double vision, NO tinnitus, YES vertigo, NO ear discharge, NO rhinorrhea, NO stuffiness, NO sneezing, NO allergy, NO epistaxis. NO Hoarseness, NO sore throat, NO swollen neck. Cardiac: NO Palpitations, NO dyspnea on exertion, NO orthopnea, NO paroxysmal nocturnal dyspnea, NO edema Respiratory: NO Shortness of Breath, NO Wheezing, NO Cough, NO Sputum, NO hemoptysis GI:NO appetite,YES nausea, NO vomiting, NO dysphagia, NO changes in bowel frequency, NO stool color, NO diarrhea, NO constipation, NO hemetemesis, NO hemorrhoids, NO melena, NO hematechezia, NO abdominal pain, NO jaundice Renal: NO frequency, NO hesitancy, NO urgency, NO hematuria, NO nocturia, NO incontinence MSK: NO muscle weakness, NO gout, NO arthritis, NO muscle stiffness Neuro: NO headaches, NO tremors, NO weakness, NO paralysis, NO seizures, NO loss of consciousness, NO numbness. Hem: NO anemia, NO easy bruising/bleeding, NO petechiae, NO purpura Endo: NO heat/cold intolerance, NO excessive sweating, NO polyuria, NO polydipsia, NO polyphagia, NO thyroid problems, NO diabetes Pysch: NO mood, NO anxiety, NO depression Exam Vital Signs Temp Pulse Resp BP Pulse Ox O2 Del Method 98.6 F 71 14 177/97 H 98 Room Air 10/09/24 15:23 10/09/24 15:23 10/09/24 15:23 10/09/24 15:23 10/09/24 15:23 10/09/24 15:23 Narrative Exam General Appearance: Alert & Oriented X3, well-nourished female who is lying in bed in mild distress due to persistent headache and nausea. HEENT: Skull symmetrical and atraumatic. Conjunctivae pin and moist. Pupils equal, round, reactive to light and accommodation (PERRL). External ear without lesion or discharge. Straight, nares patient, mucosa pink, no discharge. No thyroid nodule appreciated. No cervical lymphadenopathy. Cardio: Normal Rate and Rhythm with S1 and S2 heart sounds. No murmurs or extra heart sounds auscultated. No bruits on carotid auscultation. No peripheral edema or cyanosis. Lungs: Symmetric with good expansion. Chest and back non-tender. Breath sounds vesicular without crackles, wheezing or rhonchi Abdomen: Non-tender, Non-distended, Normal Reactive Bowel Sounds Neuro: Alert, cooperative, oriented to person, place, and time. Speech clear. CN grossly intact. Upper motor strength 5/5 and Lower motor strength 5/5. Sensation diminished right upper extremity. Results: Labs 10/09/24 11:52 10/09/24 11:52 Labs: Short CBC 10/09/24 Range/Units 11:52 WBC 8.5 (3.6-11.0) Thou/mm3 Hgb 16.4 H (12.0-16.0) g/dL Hct 43.9 (36.0-46.0) % Plt Count 243 (140-440) Thou/mm3 BMP 10/09/24 11:52 Sodium 142 Potassium 4.0 Chloride 104 Carbon Dioxide 26.9 BUN 10 Creatinine 0.9 Glucose 270 H Calcium 9.5 Cardiac Enzymes 10/09/24 Range/Units 11:52 Troponin I < 0.002 (0.0-0.045) ng/mL Liver Function 10/09/24 Range/Units 11:52 Total Bilirubin 1.0 (0.3-1.2) mg/dL AST 32 (0-34) U/L ALT 41 (10-49) U/L Alkaline Phosphatase 110 (46-116) U/L Albumin 4.2 (3.4-4.8) gm/dL Urine 10/09/24 Range/Units 15:00 Urine Color Lt-Yellow (Lt Yel-Yel) Urine Clarity Clear (Clear/Hazy) Urine pH 6.5 (5.0-7.0) Ur Specific [place] 1.050 H (1.001-1.035) Urine Protein Negative (Neg - Trace) Urine Glucose (UA) 1+ A (Negative) Quality Measures Quality Measures stroke Suspected type of Stroke: Non Acute Last known well (date): 10/08/24 Last known well (time): 21:00 Tenecteplase given: Reason(s) Tenecteplase not given: Outside the time window not given Rehab services: PT evaluation ordered VTE Prophylaxis: pharmaceutical Antithrombotic by day 2:: ordered Statin ordered: <75 y/o high intensity dose Anticoagulation ordered for A-fib or flutter (current or hx): not indicated Medications Home Medications and Allergies Home Medications ?Medication ?Instructions ?Recorded ?Confirmed ?Type atenolol 50 mg tablet 50 mg PO QDAY 09/16/2310/09 History empagliflozin 25 mg tablet 25 mg PO QAM 09/16/2310/09 History (Jardiance) losartan 100 mg tablet 100 mg PO QDAY 09/16/2310/27 History sitagliptin phos 50 mg-metformin 1 tab PO BID 09/16/23 10/09/24 History ER 1,000 mg tablet,extend rel 24h mp (Janumet XR) sodium bicarbonate 650 mg tablet 650 mg PO TID 4 09/16/23 History atorvastatin 40 mg tablet 40 mg PO QPM 10/09/24 History Allergies Allergy/AdvReac Type Severity Reaction Status Date / Time ampicillin Allergy Severe Hives Verified 10/09/24 11:20 Visit Medications Acetaminophen (Acetaminophen 325 Mg Tablet) 650 mg PO Q6H PRN PRN Reason: Mild Pain 1-3 or Fever >100.3 Stop: 11/08/24 15:58 Atorvastatin Calcium (Atorvastatin Calcium 20 Mg Tablet) 40 mg PO HS ALLAN Stop: 11/08/24 20:59 Dextrose (Dextrose 50%-Water Inj 50 Ml Syringe) 25 ml IV Q15MIN PRN PRN Reason: BG 50-70 responsive npo pt Stop: 11/08/24 16:05 Dextrose (Dextrose 50%-Water Inj 50 Ml Syringe) 50 ml IV Q15MIN PRN PRN Reason: BG <50 OR BG <70 & pt unresponsive Stop: 11/08/24 16:05 Glucagon (Glucagon Inj 1 Mg Vial) 1 mg IM Q15MIN PRN PRN Reason: BG <70, and no IV access Sodium Chloride (Ns) 1,000 mls @ 100 mls/hr IV Q10H ALLAN Stop: 11/08/24 11:29 Last Admin: 10/09/24 12:16 Dose: 100 mls/hr Insulin Human Lispro (Insulin Lispro (Admelog) 1 Unit/0.01 Ml Unit) 0 unit SC Q6HR ALLAN; Protocol Stop: 11/08/24 17:59 Ondansetron HCl (Ondansetron Inj 2 Mg/Ml Inj 2 Ml) 4 mg IVP Q6H PRN; Protocol PRN Reason: NAUSEA OR VOMITING Stop: 11/08/24 15:58 Pantoprazole Sodium (Pantoprazole Inj 40 Mg Vial) 40 mg IVP QDAY ALLAN Stop: 11/08/24 16:14 Sennosides (Senna Tablet) 1 tab PO QDAY PRN; Protocol PRN Reason: constipation Stop: 11/08/24 16:03 Discontinued Medications Dexamethasone Sodium Phosphate (Dexamethasone Sod Phos Inj 10 Mg/Ml Vial) 10 mg IV X1 ONE Stop: 10/09/24 13:31 Ondansetron HCl (Ondansetron Inj 2 Mg/Ml Inj 2 Ml) 4 mg IVP Q4HR PRN PRN Reason: NAUSEA OR VOMITING Stop: 11/08/24 11:27 Last Admin: 10/09/24 12:11 Dose: 4 mg Assessment & Plan Plan Plan Patient is 64 year old female with a PMHx of HTN, HLD, and non-insulin dependent type II diabetes who originally presented to the ED with dizziness, blurry vision, and headache admitted for stroke rule out with focal findings of diminished sensation in the right upper extremity. #Stroke Rule Out #Right Upper Extremity Paresthesia #Blurry Vision #Occipital Headache Patient presented to the emergency room with chief complain of worsening blurry vision, headache, and right upper extremity paresthesia. Concern for stroke such as ischemic or TIA vs migraine heachache vs hyperglycemic episode vs Vertigo Plan: -Plavix 300 mg X 1 -->Aspirin & Clopidogrel -MRI brain w/o contrast -Neuro Checks -Aspiration Precautions, Head of bed 30 degrees -NPO until patient passes nurse swallow screen-->low carb consistent low. -Bedside swallow screen and evaluation -Euglycemia and avoid Hyperthermia -Acetaminophen PRN -NS 1 L @ 70 cc -Lipid Panel -TSH -Allow for permissive HTN, NO TPA given, Systolic <220 or Diastolic <110 or suspected end organ failure -Labetalol PRN, give if SBP >220 or DBP >110 -Sliding Scale -Neurology Consulted, appreciated recommendations, Dr. Velasco #Hypertension Patient stated that BP runs from 130-145/70-100 at home. Upon presentation to the ED 10/09, patient's BP was 190/97 and BP's recorded in the afternoon were 154/87, 177/97, and 154/82. Plan: Allow for permissive HTN, systolic <220 or diastolic <110 or possible end organ failure, as per stroke precautions, labetalol PRN Resume home medications as allowed #Type II Diabetes Mellitus #Hyperglycemia Patient diagnosed with Type II diabetes mellitus 4 years ago, currently on Jardiance 25 mg PO QAM and Janument XR 1 tab PO BID. Previous ED visit for hyperglycemia 08/20/2024 glucose 348. 10/09/2024 glucose 270 Persistently elevated FSBG levels- 08/2024: 131, 10/09/2024: 264 and 137 Plan: Hemoglobin A1C results pending Sliding scale insulin Glucagon 1 mg injection PRN #Hyperlipidemia Patient stated that they have a history of high cholesterol for which they take medication ASCVD: Plan: Lipid panel results AM draw Start Atorvastatin 40 mg PO QD DVT prophylaxis: compression device. GI prophylaxis: IV Protonix qday Diet: NPO, until passes nurse swallow Lines: Peripheral IV Code status: Full code The patient's plan was discussed with attending Dr. Schreiber Case discussed with Attending Dr. Schreiber and senior resident Carole Barnes, MS-4 Rosalina Chow MD Internal Medicine PGY-2 Attending Provider Attestation/Addendum I have discussed and was present for the essential components of the history, physical examination, diagnosis, and treatment plan with the resident. I agree with the patient's care as documented by the resident and amended herein by me. Enzo Schreiebr MD. Although this document has been carefully reviewed, there may still be some phonetic and other typographical errors. These errors are purely grammatical due to imperfections in the software program and should not be construed in any way to compromise the substance of the patient's medical care during this visit.
[2024-10-09] MEDS: SODIUM CHLORIDE 0.9% 1000 ML 1,000 ML 75 ML IV (16:51)
[2024-10-09] MEDS: ACETAMINOPHEN 325 MG TABLET 650 MG PO (16:55)
[2024-10-09] MEDS: ASPIRIN EC 81 MG TABEC PO (16:55)
[2024-10-09] MEDS: MECLIZINE HCL 25 MG TABLET PO (16:56)
--- NOTE | 2024-10-09 17:01 | PC.NURSE ---
PHARMACY CALLED FOR PT'S PLAVIX 300MG PO MEDICATION ORDER, NOT LOADED IN ED PYXIS. PER PHARMACY, WILL BRING IT DOWN TO ED SOON.''
[2024-10-09] MEDS: CLOPIDOGREL BISULFATE 300 MG TABLET PO (17:35)
--- NOTE | 2024-10-09 17:54 | PD.RESCONSUL ---
HPI Data of Consult Requesting Physician: Enzo Schreiber MD Admitting Provider: Enzo Schreiber MD Attending Provider: Enzo Schreiber MD Primary Care Provider: Refugio Amato MD Consult Narrative History of present illness: Ms Church is a 64 y/o woman with PMH of HTN, HLD, DM who presented with dizziness, blurry vision, nausea, and RUE numbness after she woke up this AM at 0300. LKAW 2100 on 10/08. BP on admission 190/97. Patient reports BP at home 130-140s systolic. Patient seen at bedside 1700 reporting continued dizziness, blurred vision, nausea, and photophobia after administration of Tylenol, Meclizine, and Zofran. 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 #: [id number] cc:: cc: Enzo Schreiber MD Review of Systems Review of Systems Narrative Review of Systems: 14 point ROS negative other than HPI Exam Vital Signs Temp Pulse Resp BP Pulse Ox O2 Del Method 98.4 F 62 19 154/82 H 98 Room Air 10/09/24 16:39 10/09/24 16:39 10/09/24 16:39 10/09/24 16:39 10/09/24 16:39 10/09/24 16:39 Narrative Exam General: No acute distress, well nourished HENT: Normocephalic, atraumatic, normal hearing, moist oral mucosa Neck: Supple, non-tender Lungs: Non-labored respirations, symmetric chest rise Heart: Peripheral pulses intact bilaterally Skin: Skin is warm, dry, no rashes or lesions. Psychiatric: Cooperative, appropriate mood and affect Neurologic: Mental status: Orientation: Oriented to person, place, time, and situation Communication: Patient is cooperative and can follow simple instructions Language: Speech fluent, normal rate and volume, comprehension intact, Monegasque-speaking Cranial nerves: CN II: Visual riwin intact CN III: Pupils equal, round, and reactive to light CN III, IV, : No gaze deviation, no nystagmus Horizontal pursuit: intact Vertical pursuit: intact Ptosis: none CN V: Facial sensation to light touch intact bilaterally at the forehead, cheeks, and jaw line CN VII: Face symmetric, no facial droop appreciated CN VIII: Able to hear and respond to conversation at normal volume, intact to finger rub CN IX, X: Palate elevation symmetric, uvula midline CN XI: Head turn and shoulder shrug strong, symmetric bilaterally CN XII: Normal tongue protrusion without deviation, no fasciculations Motor: Normal bulk and tone No atrophy No abnormal movements or fasciculations Muscle strength: Shoulder abduction: R 5/5 L 5/5 Elbow flexion: R 5/5 L 5/5 Elbow extension: R 5/5 L 5/5 Hip flexion: R 5/5 L 5/5 Hip extension: R 5/5 L 5/5 Sensory: RUE: Light touch intact LUE: Light touch intact RLE: Light touch intact LLE: Light touch intact Reflexes: Biceps (C5-6): R 2+ L 2+ Brachioradialis (C5-6): R 1+ L 1+ Triceps (C7-8): R 2+ L 2+ Patellae (L3-4): R 2+ L 2+ No clonus Cerebellum: RUE: No dysmetria (finger to nose), no dysdiadochokinesia (rapid alternating movements) LUE: No dysmetria (finger to nose), no dysdiadochokinesia (rapid alternating movements) Romberg: deferred Gait: deferred Results Labs 10/10/24 05:01 10/10/24 05:01 Labs: Short CBC 10/09/24 Range/Units 11:52 WBC 8.5 (3.6-11.0) Thou/mm3 Hgb 16.4 H (12.0-16.0) g/dL Hct 43.9 (36.0-46.0) % Plt Count 243 (140-440) Thou/mm3 BMP 10/09/24 11:52 Sodium 142 Potassium 4.0 Chloride 104 Carbon Dioxide 26.9 BUN 10 Creatinine 0.9 Glucose 270 H Calcium 9.5 Cardiac Enzymes 10/09/24 Range/Units 11:52 Troponin I < 0.002 (0.0-0.045) ng/mL Liver Function 10/09/24 Range/Units 11:52 Total Bilirubin 1.0 (0.3-1.2) mg/dL AST 32 (0-34) U/L ALT 41 (10-49) U/L Alkaline Phosphatase 110 (46-116) U/L Albumin 4.2 (3.4-4.8) gm/dL Urine 10/09/24 Range/Units 15:00 Urine Color Lt-Yellow (Lt Yel-Yel) Urine Clarity Clear (Clear/Hazy) Urine pH 6.5 (5.0-7.0) Ur Specific [place] 1.050 H (1.001-1.035) Urine Protein Negative (Neg - Trace) Urine Glucose (UA) 1+ A (Negative) Quality Measures Quality Measures stroke Suspected type of Stroke: Non Acute Last known well (date): 10/08/24 Last known well (time): 21:00 Tenecteplase given: Reason(s) Tenecteplase not given: Outside the time window not given Rehab services: Speech Language Pathology eval ordered VTE Prophylaxis: pharmaceutical Antithrombotic by day 2:: ordered Statin ordered: <75 y/o high intensity dose Anticoagulation ordered for A-fib or flutter (current or hx): not indicated Medications Home Medications and Allergies Home Medications ?Medication ?Instructions ?Recorded ?Confirmed ?Type atenolol 50 mg tablet 50 mg PO QDAY 09/16/23 10/09/24 History empagliflozin 25 mg tablet 25 mg PO QAM 09/16/23 10/09/24 History (Jardiance) losartan 100 mg tablet 100 mg PO QDAY 09/16/23 10/09/24 History sitagliptin phos 50 mg-metformin 1 tab PO BID 09/16/23 10/09/24 History ER 1,000 mg tablet,extend rel 24h mp (Janumet XR) atorvastatin 40 mg tablet 40 mg PO QPM 10/09/24 10/09/24 History Allergies Allergy/AdvReac Type Severity Reaction Status Date / Time ampicillin Allergy Severe Hives Verified 10/09/24 11:20 Visit Medications Acetaminophen (Acetaminophen 325 Mg Tablet) 650 mg PO Q6H PRN PRN Reason: Mild Pain 1-3 or Fever >100.3 Stop: 11/08/24 15:58 Last Admin: 10/09/24 16:55 Dose: 650 mg Aspirin (Aspirin Ec 81 Mg Tabec) 81 mg PO QDAY [facility] Stop: 11/08/24 16:29 Last Admin: 10/09/24 16:55 Dose: 81 mg Atorvastatin Calcium (Atorvastatin Calcium 20 Mg Tablet) 40 mg PO [facility] Stop: 11/08/24 20:59 Clopidogrel Bisulfate (Clopidogrel Bisulfate 75 Mg Tablet) 75 mg PO QDAY [facility] Stop: 11/09/24 08:59 Dextrose (Dextrose 50%-Water Inj 50 Ml Syringe) 25 ml IV Q15MIN PRN PRN Reason: BG 50-70 responsive npo pt Stop: 11/08/24 16:05 Dextrose (Dextrose 50%-Water Inj 50 Ml Syringe) 50 ml IV Q15MIN PRN PRN Reason: BG <50 OR BG <70 & pt unresponsive Stop: 11/08/24 16:05 Glucagon (Glucagon Inj 1 Mg Vial) 1 mg IM Q15MIN PRN PRN Reason: BG <70, and no IV access Sodium Chloride (Ns) 1,000 mls @ 75 mls/hr IV Q10H ALLAN Stop: 11/08/24 16:25 Last Admin: 10/09/24 16:51 Dose: 75 mls/hr Insulin Human Lispro (Insulin Lispro (Admelog) 1 Unit/0.01 Ml Unit) 0 unit SC Q6HR ALLAN; Protocol Stop: 11/08/24 17:59 Last Admin: 10/09/24 17:01 Dose: Not Given Labetalol HCl (Labetalol Inj 5 Mg/Ml Vial 20 Ml) 10 mg IVP Q4HR PRN PRN Reason: Hypertension Stop: 11/08/24 16:13 Meclizine HCl (Meclizine Hcl 25 Mg Tablet) 25 mg PO TID PRN PRN Reason: DIZZINESS Stop: 11/08/24 16:28 Last Admin: 10/09/24 16:56 Dose: 25 mg Ondansetron HCl (Ondansetron Inj 2 Mg/Ml Inj 2 Ml) 4 mg IVP Q6H PRN; Protocol PRN Reason: NAUSEA OR VOMITING Stop: 11/08/24 15:58 Pantoprazole Sodium (Pantoprazole Inj 40 Mg Vial) 40 mg IVP QDAY ALLAN Stop: 11/08/24 16:14 Last Admin: 10/09/24 16:56 Dose: 40 mg Sennosides (Senna Tablet) 1 tab PO QDAY PRN; Protocol PRN Reason: constipation Stop: 11/08/24 16:03 Discontinued Medications Clopidogrel Bisulfate (Clopidogrel Bisulfate 75 Mg Tablet) 75 mg PO QDAY ALLAN Stop: 11/08/24 16:29 Clopidogrel Bisulfate (Clopidogrel Bisulfate 300 Mg Tablet) 300 mg PO X1 ONE Stop: 10/09/24 16:31 Last Admin: 10/09/24 17:35 Dose: 300 mg Dexamethasone Sodium Phosphate (Dexamethasone Sod Phos Inj 10 Mg/Ml Vial) 10 mg IV X1 ONE Stop: 10/09/24 13:31 Sodium Chloride (Ns) 1,000 mls @ 100 mls/hr IV Q10H ALLAN Stop: 11/08/24 11:29 Last Infusion: 10/09/24 16:51 Dose: 0 mls/hr Ondansetron HCl (Ondansetron Inj 2 Mg/Ml Inj 2 Ml) 4 mg IVP Q4HR PRN PRN Reason: NAUSEA OR VOMITING Stop: 11/08/24 11:27 Last Admin: 10/09/24 12:11 Dose: 4 mg Assessment & Plan Assessment #Acute Cerebrovascular Accident #Hypertension LKAW 2100, not a TNK candidate, continues to have blurred vision, dizziness, nausea, photophobia. No focal deficits on exam. BP on admission 190/97, symptoms continue despite BP management. Home BP meds: Atenolol 50 mg daily, Losartan [address] head w/o: negative for acute hemorrhage, mass effect, or midline shift CTA: No LVO, aneurysm, or neck arterial stenoses EKG: NSR, QTc WNL Plan: - Pending MR stroke - Pending A1C, TSH, lipid panel - Pending TTE with bubble - Pending swallow study - Labetalol PRN, give if SBP >220 or DBP >110 - Symptom management per primary team - Start ASA 81 mg daily, Plavix 75 mg daily #Type II Diabetes Mellitus #Hyperglycemia Blood glucose on admit: 270 Home meds: Cherise Rodgers Plan: - Pending Hgb A1C - Management per primary team #Hyperlipidemia Home meds: Per patient, statin, unknown ose Plan: - Pending lipid panel Start Atorvastatin 40 mg PO QD and Aspirin 81 mg PO QD Karen Kim, PGY1 Attending Provider Attestation/Addendum I personally have seen and examined the patient at the bedside and agreed with resident's findings, assessment and plan of care. Patient most likely has had either brainstem TIA or complicated migraine. Follow-up with the workup including MRI brain and echocardiogram. Continue with aspirin and statin for now. Along with permissive blood pressure control.
[2024-10-09] MEDS: ATORVASTATIN CALCIUM 20 MG TABLET 40 MG PO (21:10)
[2024-10-09 21:21] LABS: Base Excess 1 (-3-3); HCO3 26 mEq/L (20-26); Inspired Oxygen, FIO2 21 %; O2 Saturation 71 % (91-98); PCO2 45 mmHg (32.0-48.0); pH, Arterial 7.38 (7.35-7.45)
[2024-10-09 21:25] LABS: Allen Test Performed/OK; PO2 36 mmHg (83-108); Puncture Site Right Radial
[2024-10-09 21:45] LABS: Base Excess -1 (-3-3); HCO3 24 mEq/L (20-26); Inspired Oxygen, FIO2 21 %; O2 Saturation 97 % (91-98); PCO2 38 mmHg (32.0-48.0); PO2 78 mmHg (83-108); pH, Arterial 7.40 (7.35-7.45)
[2024-10-09 21:49] LABS: Allen Test Performed/OK; Puncture Site Right Radial
[2024-10-10] VITALS (9 sets, daily range): BP systolic 149–169; BP diastolic 78–99; PULSE 59–79; RESP 7–96; TEMP 36.1–36.6; O2SAT 97–99; BMI 33.0
[2024-10-10] MEDS: SODIUM CHLORIDE 0.9% 1000 ML 1,000 ML 75 ML IV ×2 (00:36→15:01)
[2024-10-10] MEDS: INSULIN LISPRO (AdmeLOG) 1 UNIT/0.01 ML UNIT SC ×5 (00:36→20:59)
[2024-10-10] MEDS: MECLIZINE HCL 25 MG TABLET PO (06:12)
[2024-10-10 06:13] LABS: Basophils # (Auto) 0.1 Thou/mm3 (0.0-0.2); Basophils % (Auto) 1 % (0-2.5); Eosinophils # (Auto) 0.2 Thou/mm3 (0.0-0.5); Eosinophils % (Auto) 3 % (0-10); Hematocrit 39.8 % (36.0-46.0); Hemoglobin 14.6 g/dL (12.0-16.0); Immature Granulocytes Auto 0.02 Thou/mm3 (0.00-0.00); Lymphocytes # (Auto) 2.5 Thou/mm3 (1.0-4.8); Lymphocytes % (Auto) 29 % (10-50); Mean Corpuscular HGB Conc 36.7 g/dl (31.0-37.0); Mean Corpuscular Hemoglobin 29.8 pg (25.0-35.0); Mean Corpuscular Volume 81 fL (80-100); Monocytes # (Auto) 0.7 Thou/mm3 (0.0-0.8); Monocytes % (Auto) 9 % (0-12); Neutrophils # (Auto) 4.8 Thou/mm3 (1.8-7.7); Neutrophils % (Auto) 58 % (37-80); Nucleated Red Blood Cell # 0.00 Thou/mm3 (0.00-0.00); Nucleated Red Blood Cell % 0 /100 WBC (0); Platelet Count 218 Thou/mm3 (140-440); RDW Standard Deviation 35.4 fL (36.4-46.3); Red Blood Count 4.90 Miln/mm3 (4.00-5.20); White Blood Count 8.4 Thou/mm3 (3.6-11.0)
[2024-10-10 06:50] LABS: Glucose Estimated Average 174 mg/dL (80-131); Hemoglobin A1C 7.7 % Hgb (4.8-6.0)
[2024-10-10 07:03] LABS: Alanine Aminotransferase 33 U/L (10-49); Albumin, Serum 3.6 gm/dL (3.4-4.8); Albumin/Globulin Ratio 1.4 (1.2-2.2); Alkaline Phosphatase 93 U/L (46-116); Anion Gap 9 (7-16); Aspartate Amino Transferase 23 U/L (0-34); BUN/Creatinine Ratio 10 Ratio (12-20); Bilirubin,Total 0.9 mg/dL (0.3-1.2); Blood Urea Nitrogen 9 mg/dL (9-23); Calcium 9.0 mg/dL (8.3-10.6); Calcium (Corrected) 9.3 mg/dL (8.5-10.1); Carbon Dioxide 24.8 mMol/L (20.0-31.0); Cardiac Risk Estimate 6.9 RATIO (3.7-5.6); Chloride 108 mMol/L (98-107); Cholesterol 213 mg/dL (132-200); Creatinine (Component) 0.9 mg/dL (0.6-1.3); Estimated Creatinine Clearance 60.2 mL/min (>60); Globulin 2.5 gm/dL (2.3-3.5); Glucose 185 mg/dL (74-106); HDL Cholesterol 31 mg/dL (40-60); LDL Cholesterol,Calculated 140 mg/dL (0-130); Magnesium 1.8 mg/dL (1.6-2.6); Osmolality,Calculated 286 (275-295); Phosphorous 4.6 mg/dL (2.4-5.1); Potassium 3.8 mMol/L (3.4-5.1); Sodium 142 mMol/L (136-145); Thyroid Stimulating Hormone 1.22 uIU/mL (0.55-4.78); Total Protein 6.1 gm/dL (5.7-8.2); Triglycerides 208 mg/dL (30-150); eGFR > 60 See Note
[2024-10-10] MEDS: ACETAMINOPHEN 325 MG TABLET 650 MG PO (07:44)
--- NOTE | 2024-10-10 09:05 | ESPR_ITS ---
<Statement entered by Enzo Schreiber MD - 10/14/24 11:47> I reviewed above note and agree with findings and plans. I have also personally examined the patient with medicine team and went over assessment and plan with medical team including hospital internship and resident physician. Documentation for date of: 10/10/24 Patient examined at bedside. Patient continues to complain of blurry vision and headaches. Metoclopramide X 1, as MRI still pending. Consider starting Ketoralac if MRI negiatve. Pending echo and PT. MRI noted with increase moderate chronic microvascular white matter changes, no signficant carotid stenosis. Neruo recommendation of Asprin and Plavix. ---->Echo EF 65%, Moderate to heavy mitral annukus calcification degenerative valve w/ calcified echogenic mobile density on chordae. Will follow up with cardiology, possiblity of MEHNAZ. Subjective Subjective Interval history: Patient was evaluated at bedside this morning. Patient continued to endorse blurry vision, particularly in the lateral visual field of the right eye. Patient continued to endorse occipital headache with nausea. Patient stated that she has been treated for migraine in the past, but could not remember the name of the medication. Patient denied that exposure to light worsens headache. Brain MRI demonstrated no acute intracranial ischemia or bleeding. Patient is pending PT, echo, and Neurology consult Dr. Velasco, appreciate recommendations Exam Vital Signs Temp Pulse Resp BP Pulse Ox O2 Del Method 97.8 F 62 12 163/96 H 97 Room Air 10/10/24 08:00 10/10/24 08:00 10/10/24 08:00 10/10/24 08:00 10/10/24 08:00 10/10/24 08:00 Narrative Exam General Appearance: Alert & Oriented X3, well-nourished female who is lying in bed in mild distress due to blurry vision and occipital headache. HEENT: Skull symmetrical and atraumatic. Conjunctivae pin and moist. Pupils equal, round, reactive to light and accommodation (PERRL). External ear without lesion or discharge. Straight, nares patient, mucosa pink, no discharge. No thyroid nodule appreciated. No cervical lymphadenopathy. Cardio: Normal Rate and Rhythm with S1 and S2 heart sounds. No murmurs or extra heart sounds auscultated. No bruits on carotid auscultation. No peripheral edema or cyanosis. Lungs: Symmetric with good expansion. Chest and back non-tender. Breath sounds vesicular without crackles, wheezing or rhonchi Abdomen: Non-tender, Non-distended, Normal Reactive Bowel Sounds Neuro: Alert, cooperative, oriented to person, place, and time. Speech clear. CN grossly intact. Upper motor strength 5/5 and Lower motor strength 5/5. Sensation intact. Objective Labs 10/10/24 05:01 10/10/24 05:01 Labs: Laboratory Results - last 24 hr 10/09/24 10/09/24 10/09/24 11:52 15:00 21:06 WBC 8.5 RBC 5.41 H Hgb 16.4 H Hct 43.9 MCV 81 MCH 30.3 MCHC 37.4 H RDW Std Deviation 34.5 L Plt Count 243 Neut % (Auto) 58 Lymph % (Auto) 31 [place] % (Auto) 8 Eos % (Auto) 2 Baso % (Auto) 1 Neut # (Auto) 4.9 Lymph # (Auto) 2.6 [place] # (Auto) 0.7 Eos # (Auto) 0.2 Baso # (Auto) 0.1 Immature Gran # (Auto) 0.02 H Absolute Nucleated RBC 0.00 Immature Gran % 0 Nucleated RBC % 0 PT 10.6 INR 1.0 APTT 26.5 Puncture Site Right Radial ABG pH 7.38 ABG pCO2 45 ABG pO2 36 L* ABG HCO3 26 ABG O2 Saturation 71 L ABG Base Excess 1 FiO2 21 Sodium 142 Potassium 4.0 Chloride 104 Carbon Dioxide 26.9 Anion Gap 11 BUN 10 Creatinine 0.9 Estim Creat Clear Calc 61.0 eGFR > 60 BUN/Creatinine Ratio 11 L Glucose [address] Glu mg/dL Hemoglobin A1c Calculated Osmolality 292 Calcium 9.5 Corrected Calcium 9.5 Phosphorus Magnesium 2.0 Total Bilirubin 1.0 AST 32 ALT 41 Alkaline Phosphatase 110 Troponin I < 0.002 B-Natriuretic Peptide 51 Total Protein 7.1 Albumin 4.2 Globulin 2.9 Albumin/Globulin Ratio 1.4 Triglycerides Cholesterol LDL Cholesterol, Calc HDL Cholesterol Cholesterol/HDL Ratio TSH Ur Collection Type Catheter Urine Color Lt-Yellow Urine Clarity Clear Urine pH 6.5 Ur Specific [place] 1.050 H Urine Protein Negative Urine Glucose (UA) 1+ A Urine Ketones Negative Urine Blood Negative Urine Nitrite Negative Urine Bilirubin Negative Urine Urobilinogen (Auto) Negative Ur Leukocyte Esterase Negative Urine RBC 4 H Urine WBC 6 H Ur Squamous Epith Cells 1 Urine Bacteria Rare Urine Opiates Screen Negative Urine Fentanyl Screen Negative Ur Barbiturates Screen Negative U Amphetamin/Meth Scrn Negative U Benzodiazepines Scrn Negative U Cocaine Metab Screen Negative U Marijuana (THC) Screen Negative Ethyl Alcohol < 10.0 10/09/24 10/10/24 21:40 05:01 WBC 8.4 RBC 4.90 Hgb 14.6 Hct 39.8 MCV 81 MCH 29.8 MCHC 36.7 RDW Std Deviation 35.4 L Plt Count 218 Neut % (Auto) 58 Lymph % (Auto) 29 [place] % (Auto) 9 Eos % (Auto) 3 Baso % (Auto) 1 Neut # (Auto) 4.8 Lymph # (Auto) 2.5 [place] # (Auto) 0.7 Eos # (Auto) 0.2 Baso # (Auto) 0.1 Immature Gran # (Auto) 0.02 H Absolute Nucleated RBC 0.00 Immature Gran % 0 Nucleated RBC % 0 PT INR APTT Puncture Site Right Radial ABG pH 7.40 ABG pCO2 38 ABG pO2 78 L D ABG HCO3 24 ABG O2 Saturation 97 ABG Base Excess -1 FiO2 21 Sodium 142 Potassium 3.8 Chloride 108 H Carbon Dioxide 24.8 Anion Gap 9 BUN 9 Creatinine 0.9 Estim Creat Clear Calc 60.2 L eGFR > 60 BUN/Creatinine Ratio 10 L Glucose [address] Glu mg/dL 174 H Hemoglobin A1c 7.7 H Calculated Osmolality 286 Calcium 9.0 Corrected Calcium 9.3 Phosphorus 4.6 Magnesium 1.8 Total Bilirubin 0.9 AST 23 ALT 33 Alkaline Phosphatase 93 Troponin I B-Natriuretic Peptide Total Protein 6.1 Albumin 3.6 D Globulin 2.5 Albumin/Globulin Ratio 1.4 Triglycerides 208 H Cholesterol 213 H LDL Cholesterol, Calc 140 H HDL Cholesterol 31 L Cholesterol/HDL Ratio 6.9 H TSH 1.22 Ur Collection Type Urine Color Urine Clarity Urine pH Ur Specific [place] Urine Protein Urine Glucose (UA) Urine Ketones Urine Blood Urine Nitrite Urine Bilirubin Urine Urobilinogen (Auto) Ur Leukocyte Esterase Urine RBC Urine WBC Ur Squamous Epith Cells Urine Bacteria Urine Opiates Screen Urine Fentanyl Screen Ur Barbiturates Screen U Amphetamin/Meth Scrn U Benzodiazepines Scrn U Cocaine Metab Screen U Marijuana (THC) Screen Ethyl Alcohol ABG Interpretation ABG results: 10/09/24 10/09/24 21:06 21:40 ABG pH 7.38 7.40 ABG pCO2 45 38 ABG pO2 36 L* 78 L D ABG HCO3 26 24 ABG O2 Saturation 71 L 97 ABG Base Excess 1 -1 Quality Measures Quality Measures stroke Suspected type of Stroke: Non Acute Last known well (date): 10/08/24 Last known well (time): 21:00 Tenecteplase given: Reason(s) Tenecteplase not given: Outside the time window not given Rehab services: PT evaluation ordered VTE Prophylaxis: pharmaceutical Antithrombotic by day 2:: ordered Statin ordered: <75 y/o high intensity dose Anticoagulation ordered for A-fib or flutter (current or hx): not indicated Assessment & Plan Assessment Current Active Medications: Generic Name Dose Route Start Last Admin Trade Name Freq PRN Reason Stop Dose Admin Acetaminophen 650 mg 10/09/24 15:59 10/10/24 07:44 Acetaminophen 325 Mg Tablet PO 11/08/24 15:58 650 mg Q6H PRN Administration Mild Pain 1-3 or Fever >100.3 Aspirin 81 mg 10/09/24 16:30 10/09/24 16:55 Aspirin Ec 81 Mg Tabec PO 11/08/24 16:29 81 mg QDAY ALLAN Administration Atorvastatin Calcium 80 mg 10/10/24 21:00 Atorvastatin Calcium 20 Mg Tablet PO 11/09/24 20:59 HS ALLAN Clopidogrel Bisulfate 75 mg 10/10/24 09:00 Clopidogrel Bisulfate 75 Mg Tablet PO 11/09/24 08:59 QDAY ALLAN Dextrose 25 ml 10/09/24 16:06 Dextrose 50%-Water Inj 50 Ml Syringe IV 11/08/24 16:05 Q15MIN PRN BG 50-70 responsive npo pt Dextrose 50 ml 10/09/24 16:06 Dextrose 50%-Water Inj 50 Ml Syringe IV 11/08/24 16:05 Q15MIN PRN BG <50 OR BG <70 & pt unresponsive Glucagon 1 mg 10/09/24 16:06 Glucagon Inj 1 Mg Vial IM Q15MIN PRN BG <70, and no IV access Sodium Chloride 1,000 mls @ 75 mls/hr 10/09/24 16:26 10/10/24 00:36 Ns IV 11/08/24 16:25 75 mls/hr Q10H ALLAN Administration Insulin Human Lispro 0 unit 10/09/24 18:00 10/10/24 06:09 Insulin Lispro (Admelog) 1 Unit/0.01 Ml Unit SC 11/08/24 17:59 1 unit Q6HR ALLAN Administration Protocol Labetalol HCl 10 mg 10/09/24 16:14 Labetalol Inj 5 Mg/Ml Vial 20 Ml IVP 11/08/24 16:13 Q4HR PRN Hypertension Meclizine HCl 25 mg 10/09/24 16:29 10/10/24 06:12 Meclizine Hcl 25 Mg Tablet PO 11/08/24 16:28 25 mg TID PRN Administration DIZZINESS Ondansetron HCl 4 mg 10/09/24 15:59 Ondansetron Inj 2 Mg/Ml Inj 2 Ml IVP 11/08/24 15:58 Q6H PRN NAUSEA OR VOMITING Protocol Pantoprazole Sodium 40 mg 10/09/24 16:15 10/09/24 16:56 Pantoprazole Inj 40 Mg Vial IVP 11/08/24 16:14 40 mg QDAY ALLAN Administration Sennosides 1 tab 10/09/24 16:04 Senna Tablet PO 11/08/24 16:03 QDAY PRN constipation Protocol Plan Plan Patient is 64 year old female with a PMHx of HTN, HLD, and non-insulin dependent type II diabetes who originally presented to the ED with dizziness, blurry vision, and headache admitted for stroke rule out with focal findings of diminished sensation in the right upper extremity. #Stroke, ruled out. #Right Upper Extremity Paresthesia #Blurry Vision #Occipital Headache MRI: Normal; stroke ruled out Patient presented to the emergency room with chief complain of worsening blurry vision, headache, and right upper extremity paresthesia. Concern for stroke such as ischemic or TIA vs migraine heachache vs hyperglycemic episode vs Vertigo Plan: -Plavix 300 mg X 1 -->Aspirin & Plavix, given echo results, will hold off on Plavix. Possible cardiology consult for MEHNAZ. -MRI brain w/o contrast: normal findings -Neuro Checks -Aspiration Precautions, Head of bed 30 degrees -Bedside swallow screen and evaluation -Euglycemia and avoid Hyperthermia -Acetaminophen PRN -Neurology Consulted, appreciated recommendations, Dr. Velasco #Hypertension Patient stated that BP runs from 130-145/70-100 at home. Upon presentation to the ED 10/09, patient's BP was 190/97 and BP's recorded in the afternoon were 154/87, 177/97, and 154/82. Plan: Allow for permissive HTN, systolic <220 or diastolic <110 or possible end organ failure, as per stroke precautions, labetalol PRN Restart Losartan 100 mg PO QD, will resume atenolol 50 mg PO QD shortly #Type II Diabetes Mellitus #Hyperglycemia Patient diagnosed with Type II diabetes mellitus 4 years ago, currently on Jardiance 25 mg PO QAM and Janument XR 1 tab PO BID. Previous ED visit for hyperglycemia 08/20/2024 glucose 348. 10/09/2024 glucose 270 10/10/2024 glucose 185 A1C 7.7 FSBG levels- 10/09/2024: 264 and 137, 10/10/2024: 152 Plan: Sliding scale insulin Glucagon 1 mg injection PRN #Hyperlipidemia Patient stated that they have a history of high cholesterol for which they take medication Lipid Panel 10/10/24: TC 213 LDL 140 HDL 31 TG 208 ASCVD: 27.6% Plan: Atorvastatin 40 mg PO QD titrated to 80 mg PO QD DVT prophylaxis: compression device. GI prophylaxis: IV Protonix qday Diet: low carb consistent low Lines: Peripheral IV Code status: Full code Case discussed with Attending Dr. Schreiber and senior resident Carole Barnes, MS-4 - The patient's plan was discussed with attending Dr. Claudine Chow MD PGY2 Internal Medicine
[2024-10-10] MEDS: ASPIRIN EC 81 MG TABEC PO (09:07)
[2024-10-10] MEDS: CLOPIDOGREL BISULFATE 75 MG TABLET PO (09:07)
[2024-10-10] MEDS: HYDROcodone/APAP 5/325 TABLET 1 TAB PO (09:54)
[2024-10-10] MEDS: METOCLOPRAMIDE INJ 5 MG/ML VIAL 2 ML IVP (09:55)
[2024-10-10] MEDS: LOSARTAN POTASSIUM 25 MG TABLET 100 MG PO (11:40)
--- NOTE | 2024-10-10 14:06 | ESPR_ITS ---
Documentation for date of: 10/10/24 Subjective Subjective Interval history: Ms Church is a 64 y/o woman with PMH of HTN, HLD, DM who presented with dizziness, blurry vision, nausea, and RUE numbness after she woke up this AM at 0300. LKAW 2100 on 10/08. BP on admission 190/97. Patient reports BP at home 130- 140s systolic. Patient seen at bedside in ED on 10/09 1700 reporting continued dizziness, blurred vision, nausea, and photophobia after administration of Tylenol, Meclizine, and Zofran. Today, she reports that her headache, nausea, and photophobia has resolved. She continues to have blurry vision (R>L eye) but it has improved from yesterday. Church Supervisor #: [id number] Sue (Daughter): [phone] Exam Vital Signs Temp Pulse Resp BP Pulse Ox O2 Del Method 97.5 F 79 21 H 159/82 H 98 Room Air 10/10/24 12:10/10/24 12:10/10/24 12:10/10/24 12:10/10/24 12:10/10/24 12:00 Narrative Exam General: No acute distress, well nourished HENT: Normocephalic, atraumatic, normal hearing, moist oral mucosa Neck: Supple, non-tender Lungs: Non-labored respirations, symmetric chest rise Heart: Peripheral pulses intact bilaterally Skin: Skin is warm, dry, no rashes or lesions. Psychiatric: Cooperative, appropriate mood and affect Neurologic: Mental status: Orientation: Oriented to person, place, time, and situation Communication: Patient is cooperative and can follow simple instructions Language: Speech fluent, normal rate and volume, comprehension intact, [place]ic- speaking Cranial nerves: CN II: Visual irwin intact CN III: Pupils equal, round, and reactive to light CN III, IV, : No gaze deviation, no nystagmus Horizontal pursuit: intact Vertical pursuit: intact Ptosis: none CN V: Facial sensation to light touch intact bilaterally at the forehead, cheeks, and jaw line CN VII: Face symmetric, no facial droop appreciated CN VIII: Able to hear and respond to conversation at normal volume, intact to finger rub CN IX, X: Palate elevation symmetric, uvula midline CN XI: Head turn and shoulder shrug strong, symmetric bilaterally CN XII: Normal tongue protrusion without deviation, no fasciculations Motor: Normal bulk and tone No atrophy No abnormal movements or fasciculations Muscle strength: Shoulder abduction: R 5/5 L 5/5 Elbow flexion: R 5/5 L 5/5 Elbow extension: R 5/5 L 5/5 Hip flexion: R 5/5 L 5/5 Hip extension: R 5/5 L 5/5 Sensory: RUE: Light touch intact LUE: Light touch intact RLE: Light touch intact LLE: Light touch intact Reflexes: Biceps (C5-6): R 2+ L 2+ Brachioradialis (C5-6): R 1+ L 1+ Triceps (C7-8): R 2+ L 2+ Patellae (L3-4): R 2+ L 2+ No clonus Cerebellum: RUE: No dysmetria (finger to nose), no dysdiadochokinesia (rapid alternating movements) LUE: No dysmetria (finger to nose), no dysdiadochokinesia (rapid alternating movements) Romberg: deferred Gait: Patient able to stand and walk several steps without dizziness or imbalance Objective Labs 10/10/24 05:01 10/10/24 05:01 Labs: Laboratory Results - last 24 hr 10/09/24 10/09/24 10/09/24 15:00 21:06 21:40 WBC RBC Hgb Hct MCV MCH MCHC RDW Std Deviation Plt Count Neut % (Auto) Lymph % (Auto) [place] % (Auto) Eos % (Auto) Baso % (Auto) Neut # (Auto) Lymph # (Auto) [place] # (Auto) Eos # (Auto) Baso # (Auto) Immature Gran # (Auto) Absolute Nucleated RBC Immature Gran % Nucleated RBC % Puncture Site Right Radial Right Radial ABG pH 7.38 7.40 ABG pCO2 45 38 ABG pO2 36 L* 78 L D ABG HCO3 26 24 ABG O2 Saturation 71 L 97 ABG Base Excess 1 -1 FiO2 21 21 Sodium Potassium Chloride Carbon Dioxide Anion Gap BUN Creatinine Estim Creat Clear Calc eGFR BUN/Creatinine Ratio Glucose Estimated Ave Glu mg/dL Hemoglobin A1c Calculated Osmolality Calcium Corrected Calcium Phosphorus Magnesium Total Bilirubin AST ALT Alkaline Phosphatase Total Protein Albumin Globulin Albumin/Globulin Ratio Triglycerides Cholesterol LDL Cholesterol, Calc HDL Cholesterol Cholesterol/HDL Ratio TSH Ur Collection Type Catheter Urine Color Lt-Yellow Urine Clarity Clear Urine pH 6.5 Ur Specific [place] 1.050 H Urine Protein Negative Urine Glucose (UA) 1+ A Urine Ketones Negative Urine Blood Negative Urine Nitrite Negative Urine Bilirubin Negative Urine Urobilinogen (Auto) Negative Ur Leukocyte Esterase Negative Urine RBC 4 H Urine WBC 6 H Ur Squamous Epith Cells 1 Urine Bacteria Rare Urine Opiates Screen Negative Urine Fentanyl Screen Negative Ur Barbiturates Screen Negative U Amphetamin/Meth Scrn Negative U Benzodiazepines Scrn Negative U Cocaine Metab Screen Negative U Marijuana (THC) Screen Negative 10/10/24 05:01 WBC 8.4 RBC 4.90 Hgb 14.6 Hct 39.8 MCV 81 MCH 29.8 MCHC 36.7 RDW Std Deviation 35.4 L Plt Count 218 Neut % (Auto) 58 Lymph % (Auto) 29 [place] % (Auto) 9 Eos % (Auto) 3 Baso % (Auto) 1 Neut # (Auto) 4.8 Lymph # (Auto) 2.5 [place] # (Auto) 0.7 Eos # (Auto) 0.2 Baso # (Auto) 0.1 Immature Gran # (Auto) 0.02 H Absolute Nucleated RBC 0.00 Immature Gran % 0 Nucleated RBC % 0 Puncture Site ABG pH ABG pCO2 ABG pO2 ABG HCO3 ABG O2 Saturation ABG Base Excess FiO2 Sodium 142 Potassium 3.8 Chloride 108 H Carbon Dioxide 24.8 Anion Gap 9 BUN 9 Creatinine 0.9 Estim Creat Clear Calc 60.2 L eGFR > 60 BUN/Creatinine Ratio 10 L Glucose [address] Glu mg/dL 174 H Hemoglobin A1c 7.7 H Calculated Osmolality 286 Calcium 9.0 Corrected Calcium 9.3 Phosphorus 4.6 Magnesium 1.8 Total Bilirubin 0.9 AST 23 ALT 33 Alkaline Phosphatase 93 Total Protein 6.1 Albumin 3.6 D Globulin 2.5 Albumin/Globulin Ratio 1.4 Triglycerides 208 H Cholesterol 213 H LDL Cholesterol, Calc 140 H HDL Cholesterol 31 L Cholesterol/HDL Ratio 6.9 H TSH 1.22 Ur Collection Type Urine Color Urine Clarity Urine pH Ur Specific [place] Urine Protein Urine Glucose (UA) Urine Ketones Urine Blood Urine Nitrite Urine Bilirubin Urine Urobilinogen (Auto) Ur Leukocyte Esterase Urine RBC Urine WBC Ur Squamous Epith Cells Urine Bacteria Urine Opiates Screen Urine Fentanyl Screen Ur Barbiturates Screen U Amphetamin/Meth Scrn U Benzodiazepines Scrn U Cocaine Metab Screen U Marijuana (THC) Screen ABG Interpretation ABG results: 10/09/24 10/09/24 21:06 21:40 ABG pH 7.38 7.40 ABG pCO2 45 38 ABG pO2 36 L* 78 L D ABG HCO3 26 24 ABG O2 Saturation 71 L 97 ABG Base Excess 1 -1 Quality Measures Quality Measures stroke Suspected type of Stroke: Non Acute Last known well (date): 10/08/24 Last known well (time): 21:00 Tenecteplase given: Reason(s) Tenecteplase not given: Outside the time window not given Rehab services: PT evaluation ordered VTE Prophylaxis: not indicated Antithrombotic by day 2:: not indicated (describe) Statin ordered: n/a Anticoagulation ordered for A-fib or flutter (current or hx): not indicated Assessment & Plan Assessment Current Active Medications: Generic Name Dose Route Start Last Admin Trade Name Freq PRN Reason Stop Dose Admin Acetaminophen 650 mg 10/09/24 15:59 10/10/24 07:44 Acetaminophen 325 Mg Tablet PO 11/08/24 15:58 650 mg Q6H PRN Administration Mild Pain 1-3 or Fever >100.3 Hydrocodone Bitart/Acetaminophen 1 tab 10/10/24 09:44 10/10/24 09:54 Hydrocodone/Apap 5/325 Tablet PO 10/15/24 09:43 1 tab Q6HR PRN Administration PAIN SCALE 4-10(Mod-Sev Aspirin 81 mg 10/09/24 16:30 10/10/24 09:07 Aspirin Ec 81 Mg Tabec PO 11/08/24 16:29 81 mg QDAY ALLAN Administration Atorvastatin Calcium 80 mg 10/10/24 21:00 Atorvastatin Calcium 20 Mg Tablet PO 11/09/24 20:59 HS ALLAN Clopidogrel Bisulfate 75 mg 10/10/24 09:00 10/10/24 09:07 Clopidogrel Bisulfate 75 Mg Tablet PO 11/09/24 08:59 75 mg QDAY ALLAN Administration Dextrose 25 ml 10/09/24 16:06 Dextrose 50%-Water Inj 50 Ml Syringe IV 11/08/24 16:05 Q15MIN PRN BG 50-70 responsive npo pt Dextrose 50 ml 10/09/24 16:06 Dextrose 50%-Water Inj 50 Ml Syringe IV 11/08/24 16:05 Q15MIN PRN BG <50 OR BG <70 & pt unresponsive Glucagon 1 mg 10/09/24 16:06 Glucagon Inj 1 Mg Vial IM Q15MIN PRN BG <70, and no IV access Sodium Chloride 1,000 mls @ 75 mls/hr 10/09/24 16:26 10/10/24 00:36 Ns IV 11/08/24 16:25 75 mls/hr Q10H ALLAN Administration Insulin Human Lispro 0 unit 10/09/24 18:00 10/10/24 11:40 Insulin Lispro (Admelog) 1 Unit/0.01 Ml Unit SC 11/08/24 17:59 1 unit Q6HR ALLAN Administration Protocol Labetalol HCl 10 mg 10/09/24 16:14 Labetalol Inj 5 Mg/Ml Vial 20 Ml IVP 11/08/24 16:13 Q4HR PRN Hypertension Losartan Potassium 100 mg 10/10/24 11:00 10/10/24 11:40 Losartan Potassium 25 Mg Tablet PO 11/09/24 10:59 100 mg QDAY ALLAN Administration Meclizine HCl 25 mg 10/09/24 16:29 10/10/24 06:12 Meclizine Hcl 25 Mg Tablet PO 11/08/24 16:28 25 mg TID PRN Administration DIZZINESS Ondansetron HCl 4 mg 10/09/24 15:59 Ondansetron Inj 2 Mg/Ml Inj 2 Ml IVP 11/08/24 15:58 Q6H PRN NAUSEA OR VOMITING Protocol Pantoprazole Sodium 40 mg 10/09/24 16:15 10/10/24 09:07 Pantoprazole Inj 40 Mg Vial IVP 11/08/24 16:14 40 mg QDAY ALLAN Administration Sennosides 1 tab 10/09/24 16:04 Senna Tablet PO 11/08/24 16:03 QDAY PRN constipation Protocol Plan #Acute Cerebrovascular Accident #Hypertension LKAW 2100, not a TNK candidate, continues to have blurred vision, dizziness, nausea, photophobia. No focal deficits on exam. BP on admission 190/97, symptoms continue despite BP management. Home BP meds: Atenolol 50 mg daily, Losartan [address] head w/o: negative for acute hemorrhage, mass effect, or midline shift CTA: No LVO, aneurysm, or neck arterial stenoses MR stroke protocol: Negative for acute hemorrhage, mass effect or midline shift. No acute infarct, Moderate chronic microvascular white matter change. No significant carotid stenoses. No cerebral large vessel arterial occlusions EKG: NSR, QTc WNL TSH WNL, A1C 7.7, Triglycerides high (208), Cholesterol high (213), LDL high (140), HDL low (31) PT recs: ok to go home Plan: - Pending TTE with bubble - Labetalol PRN, give if SBP >220 or DBP >110 - Symptom management per primary team - Start ASA 81 mg daily, Plavix 75 mg daily #Type II Diabetes Mellitus #Hyperglycemia Blood glucose on admit: 270 Home meds: Cherise Rodgers A1C 78: 7.7 Plan: - Management per primary team #Hyperlipidemia Home meds: Per patient, statin, unknown dose Triglycerides high (208), Cholesterol high (213), LDL high (140), HDL low (31) Plan: - Start Atorvastatin 40 mg PO QD Karen Kim, PGY1 Attending Provider Attestation/Addendum I personally have seen and examined the patient at the bedside and I agreed with resident findings, assessment and plan of care. With patient's presentation and negative workup for acute infarction, she could have had complicated migraine/brainstem TIA. Continue with aspirin, statin and keep the blood pressure and diabetes under control. MRI brain showing moderate chronic white matter changes consistent with small vessel ischemia. Patient is stable from neurology standpoint for discharge as she does not have any focal neurological deficit and is ambulating.
--- NOTE | 2024-10-10 14:36 | PCS.ST ---
Pt does not require formal swallowing evaluation by ST at this time. Observed breakfast. Tolerating meal. NO s/s of aspiration or dysphagia.
--- NOTE | 2024-10-10 16:04 | ECHO_ITS ---
Transthoracic Echo Report Ht (in): 61 Wt (lb): 179 Exam Location: Echo Lab Status: Inpatient Hand Lacer: Rebekah Barrera Indications: Procedure Performed: BP: 169 / 99 HR: 61 MEASUREMENTS (Male / Female) Normal Values 2D ECHO LV Diastolic Diameter PLAX 3.9 cm 4.2 - 5.9 / 3.9 - 5.3 cm LV Systolic Diameter PLAX 2.4 cm IVS Diastolic Thickness 1.3 cm 0.6 - 1.0 / 0.6 - 0.9 cm LVPW Diastolic Thickness 1.1 cm 0.6 - 1.0 / 0.6 - 0.9 cm LV Relative Wall Thickness 0.6 LVOT Diameter 1.5 cm LA Volume Index 47.3 cm?/m? 16 - 28 cm?/m? Ascending Aorta Diameter 3.5 cm DOPPLER AV Peak Velocity 138.0 cm/s AV Peak Gradient 7.6 mmHg LVOT Peak Velocity 107.0 cm/s LVOT Peak Gradient 4.6 mmHg AV Area Cont Eq pk 1.4 cm? MV Peak Velocity 126.0 cm/s MV Peak Gradient 6.4 mmHg MV Mean Velocity 60.6 cm/s MV Mean Gradient 2.0 mmHg MV Area PHT 2.0 cm? Mitral E Point Velocity 93.0 cm/s Mitral A Point Velocity 152.0 cm/s Mitral E to A Ratio 0.6 TR Peak Velocity 232.5 cm/s TR Peak Gradient 21.6 mmHg PV Peak Velocity 73.7 cm/s PV Peak Gradient 2.2 mmHg FINDINGS Left Ventricle Normal left ventricular size and systolic function with no obvious regional wall motion abnormalities. Moderate ventricular septal hypertrophy. Normal left ventricular diastolic filling pattern for age. The ejection fraction is visually estimated at 65 %. Sigmoid septum noted measuring 1.68cm. Elevated velocities noted within the left ventricle. Right Ventricle The right ventricle is normal in size and systolic function. The estimated right ventricular systolic pressure, 21 mmHg. RAP 5mmHg. Left Atrium The left atrial cavity size is severely increased. Right Atrium The right atrium is normal by two-dimensional imaging, color flow and Doppler imaging with no structural abnormalities, no thrombus formation present. Atrial Septum The interatrial septum appears normal with no evidence of a shunt. Bubble study negative for PFO/ASD. Aorta The aorta is normal by two-dimensional, color flow and Doppler interrogation. Mitral Valve Moderate mitral valve annulus calcification without stenosis. Echogenic mobile density noted on chordae. Mild mitral regurgitation. Aortic Valve The aortic valve is trileaflet and normal by two-dimensional, color flow and Doppler interrogation. There is no significant aortic valve regurgitation. Tricuspid Valve The tricuspid valve is normal by two-dimensional, color flow and Doppler interrogation. There is trace tricuspid regurgitation. Pulmonic Valve The pulmonic valve is not well visualized. There is trace pulmonic regurgitation. Vessels The pulmonary artery appears normal. The inferior vena cava pulmonary and hepatic veins appear normal. Pericardium The pericardium is normal by two-dimensional imaging. There is no significant pericardial effusion. CONCLUSIONS Indications: R/O Stroke. Bubble Study Negative for PFO/ASD. Normal LV. Moderate LVH. Estimated EF 65%. RV Normal. RVSP 21mmHg. RAP 5mmHg. Severe left atrial enlargennt Moderate to heavy mitral annukus calcification degenerative valve with calcified Echogenic mobile density noted on chordae. Mild mitral regurgitation Trace TR, PI. No Pericardial Effusion. Leslie Fletcher (Electronically Signed) Final Date: 10 October 2024 19:24
[2024-10-10] MEDS: ATORVASTATIN CALCIUM 20 MG TABLET 80 MG PO (20:58)
[2024-10-11] VITALS (9 sets, daily range): BP systolic 149–175; BP diastolic 82–101; PULSE 63–98; RESP 14–96; TEMP 36.1–36.6; O2SAT 97–99; BMI 33.0
[2024-10-11 06:09] LABS: Basophils # (Auto) 0.1 Thou/mm3 (0.0-0.2); Basophils % (Auto) 1 % (0-2.5); Eosinophils # (Auto) 0.3 Thou/mm3 (0.0-0.5); Eosinophils % (Auto) 4 % (0-10); Hematocrit 40.7 % (36.0-46.0); Hemoglobin 14.9 g/dL (12.0-16.0); Immature Granulocytes Auto 0.03 Thou/mm3 (0.00-0.00); Lymphocytes # (Auto) 2.5 Thou/mm3 (1.0-4.8); Lymphocytes % (Auto) 33 % (10-50); Mean Corpuscular HGB Conc 36.6 g/dl (31.0-37.0); Mean Corpuscular Hemoglobin 30.6 pg (25.0-35.0); Mean Corpuscular Volume 84 fL (80-100); Monocytes # (Auto) 0.6 Thou/mm3 (0.0-0.8); Monocytes % (Auto) 8 % (0-12); Neutrophils # (Auto) 4.0 Thou/mm3 (1.8-7.7); Neutrophils % (Auto) 54 % (37-80); Nucleated Red Blood Cell # 0.00 Thou/mm3 (0.00-0.00); Nucleated Red Blood Cell % 0 /100 WBC (0); Platelet Count 206 Thou/mm3 (140-440); RDW Standard Deviation 35.7 fL (36.4-46.3); Red Blood Count 4.87 Miln/mm3 (4.00-5.20); White Blood Count 7.4 Thou/mm3 (3.6-11.0)
[2024-10-11 06:28] LABS: Alanine Aminotransferase 30 U/L (10-49); Albumin, Serum 3.7 gm/dL (3.4-4.8); Albumin/Globulin Ratio 1.5 (1.2-2.2); Alkaline Phosphatase 94 U/L (46-116); Anion Gap 12 (7-16); Aspartate Amino Transferase 24 U/L (0-34); BUN/Creatinine Ratio 10 Ratio (12-20); Bilirubin,Total 0.7 mg/dL (0.3-1.2); Blood Urea Nitrogen 8 mg/dL (9-23); Calcium 8.5 mg/dL (8.3-10.6); Calcium (Corrected) 8.7 mg/dL (8.5-10.1); Carbon Dioxide 24.5 mMol/L (20.0-31.0); Chloride 105 mMol/L (98-107); Creatinine (Component) 0.8 mg/dL (0.6-1.3); Estimated Creatinine Clearance 67.8 mL/min (>60); Globulin 2.4 gm/dL (2.3-3.5); Glucose 260 mg/dL (74-106); Magnesium 1.8 mg/dL (1.6-2.6); Osmolality,Calculated 288 (275-295); Phosphorous 3.4 mg/dL (2.4-5.1); Potassium 3.9 mMol/L (3.4-5.1); Sodium 141 mMol/L (136-145); Total Protein 6.1 gm/dL (5.7-8.2); eGFR > 60 See Note
[2024-10-11] MEDS: INSULIN LISPRO (AdmeLOG) 1 UNIT/0.01 ML UNIT SC ×2 (07:37→11:34)
[2024-10-11] MEDS: CLOPIDOGREL BISULFATE 75 MG TABLET PO (08:15)
[2024-10-11] MEDS: LOSARTAN POTASSIUM 25 MG TABLET 100 MG PO (08:16)
[2024-10-11] MEDS: ASPIRIN EC 81 MG TABEC PO (08:17)
--- NOTE | 2024-10-11 08:28 | ESDS_ITS ---
<Statement entered by Enzo Schreiber MD - 10/23/24 14:14> I reviewed above note and agree with findings and plans. I have also personally examined the patient with medicine team and went over assessment and plan with medical team including chief internal auditor and resident physician. Planned Discharge Date 10/11/24 DS: Providers Provider Date of admission: 10/09/24 15:59 Primary care physician: Refugio Amato MD Admitting Provider: Enzo Schreiber MD Attending Provider on Admission: Enzo Schreiber MD Consults: 10/09/24 11:28 Consult to Neurology / Tele-Neurology Routine Comment: Consulting Provider: [facility] 10/09/24 16:11 Referral Physical Therapy Stat Comment: Physician Instructions: Instructions: stroke rule out 10/09/24 16:32 Consult to Neurology / Tele-Neurology Urgent Comment: stroke rule out, dizziness, blurry, and r. UE numb Consulting Provider: Héctor Velasco Attending Provider on DC: Refugio Snowden Discharging Provider: Refugio Snowden DS: Diagnosis Problem List Completed Was Problem List Reviewed/Reconciled?: Yes Hospital Course Hospital Course Hospital course: Summary: Patient is a 64 year old female with a PMHx of HTN, HLD, and type II diabetes who originally presented to the ED with complaints of blurry vision, dizziness, headaches, nausea, and right upper extremity paresthesia who was admitted on 10/09 for the listed symptoms and stroke rule out subsequently diagnosed with TIA. ED Course: Patient presented to the ED with chief complaints listed above. Patient stated that LKW was 2100 on 10/08. Patient stated that she woke up at 0300 10/09 to go to bathroom and was experiencing symptoms mentioned above. Patient denied any previous similar episodes. Patient stated that her BP around that time was 186/100. Patient denied chest pain, shortness of breath, and palpitations. Patient denied family history of CVA, cardiac events, or seizure disorders. Pertinent labs include glucose 270. Medications given include ondansetron 4 mg IVP for nausea. CT head and neck both demonstrated normal findings. EKG demonstrated sinus rhythm with left axis deviation. Bedside neurology consult with Dr. Sher found NIHSS 1 for right upper extremity paresthesia and recommended admission for noted symptoms and stroke rule out. Hospital Course: Patient was admitted 10/09 for symptoms stated above and stroke rule out. Patient continued to deny similar previous similar episodes. Patient demonstrated improvement in blurry vision, headache, dizziness, and right upper extremity paresthesia. Paitent exhibited urinary symptoms. Pertinent labs include: glucose 259 FSBG 232 TG 208 TC 213 LDL 140 HDL 31 +ESBL E.coli. MRI brain demonstrated chronic microvascular white matter change and no acute ischemic or hemorrhagic changes. Echocardiogram demonstrated EF 60-65%, calcified mitral valve with echogenic mobile density and mild regurgitation, trace tricuspid valve regurgitation, and trace pulmonic valve regurgitation. Treatments provided include: clopidogrel 300 mg bolus and aspirin 81 mg PO QD/plavix 75 mg PO QD per stroke rule out recommendations, restarting losartan 100 mg PO QD (10/10) and atenolol 50 mg PO QD (10/11) for HTN, meclizine 25 mg PRN for dizziness, Lantis 5 units and sliding scale insulin for type II diabetes mellitus and hyperglycemia, and pantoprazole 40 mg IVP QD per GI prophylaxis. Patient will resume home medications as prescribed upon discharge, including nitrofurantoin 50 mg PO QD for urinary tract infection. Neurology consult Dr. Velasco safe to discharge home with statin, aspirin, and plavix. Patient is stable and progressing back to baseline. Instructions: -Please take take aspirin 81 mg once daily, atorvastatin 80 mg once daily and clopidogrel 75 mg once daily -Please take meclizine 12.5 mg orally up to 3 times a day as needed for dizziness -Continue to take all other medications as prescribed -Please follow up with neurology -Please follow up with your primary care provider within one week of discharge -If your symptoms worsen,please seek immediate medical attention and return to your nearest emergency room -If you do not have a primary care provider, you may follow up at the [facility] at [address], [place] [address], #Transient Ischemic Attack #Blurry Vision #Dizziness #Occipital Headache #Right Upper Extremity Paresthesia #Hypertension #Hyperlipidemia #Type II Diabetes Mellitus #Hyperglycemia #Culture Positive Urinary Tract Infection Case discussed with attending Dr. Candie Petersen MS-4 Rosalina Chow MD Internal Medicine PGY-2 Status at Discharge Cognitive/behavioral status at discharge: Patient is AO x 4. Time Spent with Patient Time attestation: Total time spent providing and/or coordinating discharge services: Time spent: Greater than 30 minutes Exam Vital Signs Temp Pulse Resp BP Pulse Ox O2 Del Method 97.3 F 88 15 152/101 H 99 Room Air 10/11/24 04:00 10/11/24 08:16 10/11/24 07:21 10/11/24 08:16 10/11/24 04:00 10/11/24 04:00 Narrative Exam General Appearance: Alert & Oriented X3, well-nourished female who is lying in bed in no acute distress. HEENT: Skull symmetrical and atraumatic. Conjunctivae pink and moist. Pupils equal, round, reactive to light and accommodation (PERRL). External ear without lesion or discharge. Straight, nares patient, mucosa pink, no discharge. No thyroid nodule appreciated. No cervical lymphadenopathy. Cardio: Normal Rate and Rhythm with S1 and S2 heart sounds. No murmurs or extra heart sounds auscultated. No bruits on carotid auscultation. No peripheral edema or cyanosis. Lungs: Symmetric with good expansion. Chest and back non-tender. Breath sounds vesicular without crackles, wheezing or rhonchi Abdomen: Non-tender, Non-distended, Normal Reactive Bowel Sounds Neuro: Alert, cooperative, oriented to person, place, and time. Speech clear. CN grossly intact. Upper motor strength 5/5 and Lower motor strength 5/5. Sensation intact. Discharge Plan Plan Patient Disposition: HOME (Self Care) Care Plan Goals: Instructions: -Please take take aspirin 81 mg once daily, atorvastatin 80 mg once daily and clopidogrel 75 mg once daily -Please take meclizine 12.5 mg orally up to 3 times a day as needed for dizziness -Continue to take all other medications as prescribed -Please follow up with neurology -Please follow up with your primary care provider within one week of discharge -If your symptoms worsen,please seek immediate medical attention and return to your nearest emergency room -If you do not have a primary care provider, you may follow up at the [facility] at [address], [place] [address], Instrucciones: - [place] aspirina 81 mg chris vez al d?a, atorvastatina 80 mg chris vez al d?a y clopidogrel 75 mg chris vez al d?a. - [place] meclizina 12.5 mg por v?a oral hasta 3 veces al d?a seg?n sea necesario para el mareo. - Contin?e tomando todos los dem?s medicamentos seg?n lo prescrito. - Consulte con [facility] m?dico de cabecera dentro de la semana posterior al jolly. - Si anay s?ntomas empeoran, busque atenci?n m?dica inmediata y acuda a la moi de urgencias m?s cercana. - Si no cuenta con un m?dico de cabecera, puede consultar con [facility] en el [facility], ub[address]ado en [address], [address], [place] [address], tel?fono . Prescriptions/Referrals Prescriptions/Med Rec: New clopidogrel 75 mg Tablet 75 mg PO QDAY 30 Days Qty: 30 0RF aspirin 81 mg Tablet,Delayed Release (Dr/Ec) 81 mg PO QDAY 30 Days Qty: 30 0RF atorvastatin 80 mg tablet 80 mg PO QPM Qty: 30 0RF meclizine 12.5 mg tablet 12.5 mg PO TID PRN (Reason: dizziness) Qty: 20 0RF nitrofurantoin macrocrystal 50 mg capsule 50 mg PO QID 5 Days Qty: 20 0RF Rx Instructions: must administer with a meal/food Continued losartan 100 mg Tablet 100 mg PO QDAY atenolol 50 mg Tablet 50 mg PO QDAY Janumet XR 50-1,000 mg Tablet, Er Multiphase 24 Hr 1 tab PO BID Jardiance 25 mg Tablet 25 mg PO QAM acetaminophen [Aminofen] 325 mg tablet 325 mg PO QID PRN (Reason: pain) Qty: 30 0RF Discontinued cyclobenzaprine 5 mg tablet 5 mg PO TID PRN (Reason: muscle spasm) Qty: 20 0RF atorvastatin 40 mg tablet 40 mg PO QPM phenazopyridine [Pyridium] 200 mg tablet 200 mg PO TID Qty: 6 0RF Referrals: Refugio Amato MD [Primary Care Provider] - Héctor Velasco MD [Physician] - Patient/Caregiver Discharge Instructions Education Materials: ED TIA: Transient Ischemic Attack Print Language: [place] Helen[place] Stand Alone Forms: Kajal Award Info., Patient Portal Info Letter Discharge Order Discharge Orders: Discharge (Routine); Ordered 10/11/24 Ordered By: Krysten Michaels Quality Discharge Quality Measures stroke Statin ordered >75 y/o:moderate or high intensity dose on DC: no Statin ordered <75 y/o: high intensity dose on DC: yes Statin not ordered due to:: not indicated Anticoagulation ordered for A-fib or flutter (current or hx): not indicated Antithrombotic ordered on DC: ordered (Aspirin and Plavix.) MD Attestestation MD Attestation I have discussed and was present for the essential components of the history, physical examination, diagnosis, and treatment plan with the resident. I agree with the patient's care as documented by the resident and amended herein by me. Enzo Schreiber MD. Although this document has been carefully reviewed, there may still be some phonetic and other typographical errors. These errors are purely grammatical due to imperfections in the software program and should not be construed in any way to compromise the substance of the patient's medical care during this visit.
[2024-10-11] MEDS: INSULIN GLARGINE (Lantus) 5 UNIT/0.05 ML (PER 5 UNITS) SC (08:31)
--- NOTE | 2024-10-11 10:14 | PD.RESPRO ---
Documentation for date of: 10/11/24 Subjective Subjective Interval history: Patient lying in bed, states that she feels better today. She continues to report blurry vision in right eye that has improved since admission. Sue (Daughter): [phone] Exam Vital Signs Temp Pulse Resp BP Pulse Ox O2 Del Method 96.9 F 86 17 158/88 H 98 Room Air 10/11/24 08:00 10/11/24 09:16 10/11/24 08:00 10/11/24 09:16 10/11/24 08:00 10/11/24 08:00 Narrative Exam ls equal, round, and reactive to light CN III, IV, : No gaze deviation, no nystagmus Horizontal pursuit: intact Vertical pursuit: intact Ptosis: none CN V: Facial sensation to light touch intact bilaterally at the forehead, cheeks, and jaw line CN VII: Face symmetric, no facial droop appreciated CN VIII: Able to hear and respond to conversation at normal volume, intact to finger rub CN IX, X: Palate elevation symmetric, uvula midline CN XI: Head turn and shoulder shrug strong, symmetric bilaterally CN XII: Normal tongue protrusion without deviation, no fasciculations Motor: Normal bulk and tone No atrophy No abnormal movements or fasciculations Muscle strength: Shoulder abduction: R 5/5 L 5/5 Elbow flexion: R 5/5 L 5/5 Elbow extension: R 5/5 L 5/5 Hip flexion: R 5/5 L 5/5 Hip extension: R 5/5 L 5/5 Sensory: RUE: Light touch intact LUE: Light touch intact RLE: Light touch intact LLE: Light touch intact Reflexes: Biceps (C5-6): R 2+ L 2+ Brachioradialis (C5-6): R 1+ L 1+ Triceps (C7-8): R 2+ L 2+ Patellae (L3-4): R 2+ L 2+ No clonus Cerebellum: RUE: No dysmetria (finger to nose), no dysdiadochokinesia (rapid alternating movements) LUE: No dysmetria (finger to nose), no dysdiadochokinesia (rapid alternating movements) Romberg: deferred Gait: Patient able to stand and walk several steps without dizziness or imbalance Objective Labs 10/11/24 05:00 10/11/24 05:00 Labs: Laboratory Results - last 24 hr 10/11/24 05:00 WBC 7.4 RBC 4.87 Hgb 14.9 Hct 40.7 MCV 84 MCH 30.6 MCHC 36.6 RDW Std Deviation 35.7 L Plt Count 206 Neut % (Auto) 54 Lymph % (Auto) 33 [place]gett % (Auto) 8 Eos % (Auto) 4 Baso % (Auto) 1 Neut # (Auto) 4.0 Lymph # (Auto) 2.5 [place]gett # (Auto) 0.6 Eos # (Auto) 0.3 Baso # (Auto) 0.1 Immature Gran # (Auto) 0.03 H Absolute Nucleated RBC 0.00 Immature Gran % 0 Nucleated RBC % 0 Sodium 141 Potassium 3.9 Chloride 105 Carbon Dioxide 24.5 Anion Gap 12 BUN 8 L Creatinine 0.8 Estim Creat Clear Calc 67.8 eGFR > 60 BUN/Creatinine Ratio 10 L Glucose 260 H D Calculated Osmolality 288 Calcium 8.5 Corrected Calcium 8.7 Phosphorus 3.4 Magnesium 1.8 Total Bilirubin 0.7 AST 24 ALT 30 Alkaline Phosphatase 94 Total Protein 6.1 Albumin 3.7 Globulin 2.4 Albumin/Globulin Ratio 1.5 ABG Interpretation ABG results: 10/09/24 10/09/24 21:06 21:40 ABG pH 7.38 7.40 ABG pCO2 45 38 ABG pO2 36 L* 78 L D ABG HCO3 26 24 ABG O2 Saturation 71 L 97 ABG Base Excess 1 -1 Quality Measures Quality Measures stroke Suspected type of Stroke: Non Acute Last known well (date): 10/08/24 Last known well (time): 21:00 Tenecteplase given: Reason(s) Tenecteplase not given: Outside the time window not given Rehab services: PT evaluation ordered VTE Prophylaxis: not indicated Antithrombotic by day 2:: not indicated (describe) Statin ordered: n/a Anticoagulation ordered for A-fib or flutter (current or hx): not indicated Assessment & Plan Assessment Current Active Medications: Generic Name Dose Route Start Last Admin Trade Name Freq PRN Reason Stop Dose Admin Acetaminophen 650 mg 10/09/24 15:59 10/10/24 07:44 Acetaminophen 325 Mg Tablet PO 11/08/24 15:58 650 mg Q6H PRN Administration Mild Pain 1-3 or Fever >100.3 Hydrocodone Bitart/Acetaminophen 1 tab 10/10/24 09:44 10/10/24 09:54 Hydrocodone/Apap 5/325 Tablet PO 10/15/24 09:43 1 tab Q6HR PRN Administration PAIN SCALE 4-10(Mod-Sev Aspirin 81 mg 10/09/24 16:30 10/11/24 08:17 Aspirin Ec 81 Mg Tabec PO 11/08/24 16:29 81 mg QDAY ALLAN Administration Atenolol 50 mg 10/11/24 09:00 10/11/24 09:16 Atenolol 25 Mg Tablet PO 11/10/24 08:59 50 mg QDAY ALLAN Administration Atorvastatin Calcium 80 mg 10/10/24 21:00 10/10/24 20:58 Atorvastatin Calcium 20 Mg Tablet PO 11/09/24 20:59 80 mg HS ALLAN Administration Dextrose 25 ml 10/11/24 08:39 Dextrose 50%-Water Inj 50 Ml Syringe IV 11/10/24 08:38 Q15MIN PRN BG 50-70 responsive npo pt Dextrose 50 ml 10/11/24 08:39 Dextrose 50%-Water Inj 50 Ml Syringe IV 11/10/24 08:38 Q15MIN PRN BG <50 OR BG <70 & pt unresponsive Glucagon 1 mg 10/11/24 08:39 Glucagon Inj 1 Mg Vial IM Q15MIN PRN BG <70, and no IV access Heparin Sodium (Porcine) 5,000 unit 10/11/24 14:00 Heparin Sod Inj 5000 Unit/Ml Vial SC 10/25/24 13:59 Q8HR ALLAN Insulin Human Lispro 0 unit 10/11/24 11:30 Insulin Lispro (Admelog) 1 Unit/0.01 Ml Unit SC 11/10/24 11:29 ACHS ALLAN Protocol Losartan Potassium 100 mg 10/10/24 11:00 10/11/24 08:16 Losartan Potassium 25 Mg Tablet PO 11/09/24 10:59 100 mg QDAY ALLAN Administration Meclizine HCl 25 mg 10/09/24 16:29 10/10/24 06:12 Meclizine Hcl 25 Mg Tablet PO 11/08/24 16:28 25 mg TID PRN Administration DIZZINESS Ondansetron HCl 4 mg 10/09/24 15:59 Ondansetron Inj 2 Mg/Ml Inj 2 Ml IVP 11/08/24 15:58 Q6H PRN NAUSEA OR VOMITING Protocol Pantoprazole Sodium 40 mg 10/09/24 16:15 10/11/24 08:14 Pantoprazole Inj 40 Mg Vial IVP 11/08/24 16:14 40 mg QDAY ALLAN Administration Sennosides 1 tab 10/09/24 16:04 Senna Tablet PO 11/08/24 16:03 QDAY PRN constipation Protocol Plan #Chronic microvascular changes #Complicated migraine vs brainstem TIA #Hypertension LKAW 2100, not a TNK candidate, continues to have blurred vision, dizziness, nausea, photophobia. No focal deficits on exam. BP on admission 190/97, symptoms continue despite BP management. Home BP meds: Atenolol 50 mg daily, Losartan [address] head w/o: negative for acute hemorrhage, mass effect, or midline shift CTA: No LVO, aneurysm, or neck arterial stenoses MR stroke protocol: Negative for acute hemorrhage, mass effect or midline shift. No acute infarct, Moderate chronic microvascular white matter change. No significant carotid stenoses. No cerebral large vessel arterial occlusions. Significant for chronic microvascular white matter changes - consistent with small vessel ischemia EKG: NSR, QTc WNL TSH WNL, A1C 7.7, Triglycerides high (208), Cholesterol high (213), LDL high (140), HDL low (31) TTE 10/10: negative for PFO/ASD, LVEF 65% PT recs: ok to go home DDX: Complicated migraine / brainstem TIA Acute infarction w/u negative. No residual focal neuro deficits, able to ambulate. Plan: - BP management per primary team - Continue ASA 81 mg daily, statin, BP and diabetes management - Stable for discharge from neurological perspective - Counseled patient on importance of close BP and blood glucose management. #Type II Diabetes Mellitus #Hyperglycemia Blood glucose on admit: 270 Home meds: Cherise Rodgers A1C 10/10: 7.7 Plan: - Management per primary team #Hyperlipidemia Home meds: Per patient, statin, unknown dose Triglycerides high (208), Cholesterol high (213), LDL high (140), HDL low (31) Plan: - Continue Atorvastatin 40 mg PO QD Neurology will sign off at this time Plan discussed with Dr. Krista Kim, PGY1 Attending Provider Attestation/Addendum I independently reviewed the patient's information virtually and I agreed with the resident's findings, assessment and plan of care. Patient most likely has had a TIA/complicated migraine based on the presentation and the negative workup. Prominent chronic white matter ischemic changes are most likely elated to underlying hypertension. She is stable for discharge from on aspirin, Plavix and statin
--- NOTE | 2024-10-11 11:57 | PC.SS ---
Late note 10-10-24: SS met with patient regarding her d/c plan.? Pt is alert/oriented.? Pt was admitted for Stroke Rle Out.? Pt confirmed demographic and contact information is correct on facesheet.? Pt resides with son and granddaughter.? Pt ambulates independently without assistance or DME.? Pt is ok with all ADLs.? Patient?s pharmacy of choice is [facility] [address] Pt named her dtr, Sue Roper medical decision maker if she is unable.? Patient?s choice is to return home upon d/c.? Pt states she is diabetic, has glucometer, and test strips.? Pt states she is not on dialysis.? Pt states she followed up with PCP in September.? Patient's neighbor, Hua will provide transportation. D/C plan:? Return home Next of Kin:? ?Sue Roper, phone# [phone] PCP:? [facility] Address:? Correct on facesheet
== END 2024-10-11 15:25 | disposition home or self-care (01) ==
LOC: SERX 15:44 → SERHOLD 16:44 → S2NX 10-10 06:11 → SERHOLD 10-12 06:27 → S2NX 10-12 06:28
PROVIDERS: Admitting Provider Internal Medicine; Emergency Provider Family Medicine; PCP Family Medicine; Visit Provider Internal Medicine
DX: G45.9 Transient cerebral ischemic attack, unspecified (principal); H53.8 Other visual disturbances; I10 Essential (primary) hypertension; Z79.84 Long term (current) use of oral hypoglycemic drugs; R51.9 Headache, unspecified; E11.65 Type 2 diabetes mellitus with hyperglycemia; E78.5 Hyperlipidemia, unspecified; I25.10 Atherosclerotic heart disease of native coronary artery without angina pectoris; E78.00 Pure hypercholesterolemia, unspecified; N39.0 Urinary tract infection, site not specified; Z01.810 Encounter for preprocedural cardiovascular examination
CPT/HCPCS: 36415; 36600; 70450; 70496; 70498; 70544; 80053; 80061; 80307; 80320; 81001; 82803; 83036; 83735; 83880; 84100; 84443; 84484; 85025; 85610; 85730; 87077; 87086; 87186; 93005; 93306; 96361; 96374; 96375; 96376; 97162; 99291; A4649; G0378; J1815; J2405; J2470; J2765; J7030; Q9967; A9270; G0480

== ENCOUNTER 2025-01-16 12:17 | Emergency (ER) | payer MEDICAID, SELFPAY ==
[2025-01-16 12:33] VITALS: BP 180/81; PULSE 71; RESP 18; TEMP 37.2; O2SAT 98; BMI 32.8
--- NOTE | 2025-01-16 12:50 | PD.EDLOWEX ---
Lower Extremity Injury RME/HPI General Chief Complaint: Extremity Injury, Lower Stated Complaint: PAIN R) KNEE X 6 DAYS, 11/12 Time Seen by Provider: 01/16/25 12:35 Source: patient Arrival date/time: 01/16/25 12:17 64-year-old female with a history of hypertension, hyperlipidemia, type 2 diabetes presents to the emergency room with a chief complaint of right calf pain x 6 days. Mode of arrival: ambulatory Limitations: no limitations Related Data Home Medications ?Medication ?Instructions ?Recorded ?Confirmed atenolol 50 mg tablet 50 mg PO QDAY 09/16/23 10/09/24 empagliflozin 25 mg tablet 25 mg PO QAM 09/16/23 10/09/24 (Jardiance) losartan 100 mg tablet 100 mg PO QDAY 09/16/23 10/09/24 sitagliptin phos 50 mg-metformin 1 tab PO BID 09/16/23 10/09/24 ER 1,000 mg tablet,extend rel 24h mp (Janumet XR) Previous Rx's ?Medication ?Instructions ?Recorded acetaminophen 325 mg tablet 325 mg PO QID PRN pain #30 tabs 09/21/24 (Aminofen) atorvastatin 80 mg tablet 80 mg PO QPM #30 tabs 10/11/24 meclizine 12.5 mg tablet 12.5 mg PO TID PRN dizziness #20 10/11/24 tabs Allergies Allergy/AdvReac Type Severity Reaction Status Date / Time ampicillin Allergy Severe Hives Verified 01/16/25 12:22 Review of Systems Review of Systems Systems Reviewed: All systems reviewed, normal except as documented Constitutional Constitutional: Reports system reviewed and no additional complaints, except as documented, Denies fatigue, Denies fever(s), Denies headache(s) and Denies weakness Eyes Eyes: Reports system reviewed and no additional complaints, except as documented, Denies blurry vision and Denies change in vision ENT Ears, Nose, Mouth, and Throat: Reports system reviewed and no additional complaints, except as documented, Denies otalgia, Denies headache(s), Denies nasal congestion, Denies throat swelling and Denies vertigo Cardiovascular Cardiovascular: Reports system reviewed and no additional complaints, except as documented, Denies chest pain, Denies dyspnea and Denies dyspnea on exertion Respiratory Respiratory: Reports system reviewed and no additional complaints, except as documented, Denies chest congestion, Denies cough, Denies dyspnea, Denies dyspnea on exertion and Denies wheezing Gastrointestinal Gastrointestinal: Reports system reviewed and no additional complaints, except as documented, Denies abdominal pain, Denies cramping, Denies nausea and Denies vomiting Genitourinary Genitourinary: Reports system reviewed and no additional complaints, except as documented Musculoskeletal Musculoskeletal: Reports system reviewed and no additional complaints, except as documented, Reports arthralgias, Denies back pain, Reports joint swelling and Reports limited range of motion Integumentary/Breasts Skin/Breast: Reports system reviewed and no additional complaints, except as documented and Denies wounds Neurologic Neurologic: Reports system reviewed and no additional complaints, except as documented, Denies confusion, Denies headache(s), Denies lack of coordination, Denies vertigo and Denies weakness Psychiatric Psychiatric: Reports system reviewed and no additional complaints, except as documented, Denies anxiety, Denies confusion, Denies depression, Denies paranoia, Denies suicidal ideation and Denies tactile hallucinations Endocrine Endocrine: Reports system reviewed and no additional complaints, except as documented and Denies fatigue Hematologic/Lymphatic Hematologic/Lymphatic: Reports system reviewed and no additional complaints, except as documented and Denies lymphadenopathy Allergic/Immunologic Allergic/Immunologic: Reports system reviewed and no additional complaints, except as documented, Denies throat swelling, Denies urticaria and Denies wheezing ED Exam General Limitations: Present no limitations General appearance: Present alert and in no apparent distress Head Head exam: Present atraumatic Eye Eye exam: Present normal appearance, PERRL and EOMI ENT ENT exam: Present normal exam, normal oropharynx and mucous membranes moist Neck Neck exam: Present normal inspection, full ROM and trachea midline Chest Chest inspection: Present normal inspection and symmetric chest wall rise Respiratory Respiratory exam: Present normal lung sounds bilaterally Cardiovascular Cardiovascular exam: Present regular rate, normal rhythm and normal heart sounds Abdominal Exam Abdominal exam: Present soft and normal bowel sounds Extremities Exam Extremities exam: Present normal inspection and full ROM Expanded Lower Extremity Exam Hip/Pelvis exam: Present normal inspection Upper leg exam: Present normal inspection Knee exam: Present normal inspection Lower leg exam: Present normal inspection, full ROM and tenderness; Absent swelling, erythema or Homans' sign Ankle exam: Present normal inspection Back Exam Back exam: Present normal inspection and full ROM Neurological Exam Neurological exam: Present alert, oriented X3 and CN II-XII intact Psychiatric Psychiatric exam: Present normal affect and normal mood Skin Skin exam: Present warm, dry, intact and normal color Course Quality Measures none Orders Category Date Time Status Ketorolac Inj [Toradol Inj] Med 01/16/25 12:47 Discontinued 30 mg IM X1 ONE Vital Signs Vital signs: Vital Signs Temperature 98.9 F 01/16/25 12:33 Pulse Rate 71 01/16/25 12:33 Respiratory Rate 18 01/16/25 12:33 Blood Pressure 180/81 H 01/16/25 12:33 Pulse Oximetry (%) 98 01/16/25 12:33 Oxygen Delivery Method Room Air 01/16/25 12:33 Extremity Injury, Lower MDM Narrative MDM Narrative:: 64-year-old female with a history of hypertension, hyperlipidemia, type 2 diabetes presents to the emergency room with a chief complaint of right calf pain x 6 days. Patient is hemodynamically stable and in no apparent distress Physical examination shows tenderness and pain to the patient's right calf. There is no tenderness no swelling to the knee or to the ankle. The patient is able to ambulate and has been ambulating for the last 6 days. Patient states most of her pain is to the calf itself where the muscle is. Toradol shot was given and the patient was educated to follow-up with her primary care provider Patient was discharged and educated to follow-up with primary care provider in the next 24 to 48 hours and return to the emergency room for any evidence of worsening signs or symptoms Patient data External records reviewed:: [facility] previous records Clinical information provided by:: patient Social determinants that could affect healthcare access:: none Patient has the following chronic illnesses:: No chronic illness How is presenting disease/condition affected by chronic disease/condition?: no chronic disease Evaluation data The following diagnostics were reviewed and interpreted by me:: lab results and radiology exam(s) Lab and/or radiology exams considered but not ordered:: Labs and radiology exams considered and ordered Interpretation Summary: N/A Medications / Prescriptions Medications or Prescriptions considered but not ordered:: Medication given Medication administrations:: Medication Administration History Discontinued Medications Ketorolac Tromethamine (Ketorolac Inj 60 Mg/2 Ml Vial) 30 mg IM X1 ONE Stop: 01/16/25 12:48 Medication given Consultations Consultation(s) initiated? (list below): No Diagnosis Extremity Injury, Lower Differential Diagnosis: other (Contusion of right lower extremity/knee fracture/knee sprain) Most likely diagnosis given after review of the tests above:: Contusion of right lower extremity Admission Indicated Admission indicated?: not indicated Admission Request Was there a request for admission?: No Disposition Plan Disposition Plan: Discharge Discharge Attestation Discharge Attestation: The patient and all family members were given an opportunity to ask questions and understood the discharge instructions. Discharge instructions specifically effects, indications for sooner follow up or return to the emergency department, and the expected course of current diagnosis. Patient condition: Stable Discharge Plan Plan Patient Disposition: HOME (Self Care) Discharge Disposition comment: Stable Prescriptions/Referrals Prescriptions/Med Rec: No Action losartan 100 mg Tablet 100 mg PO QDAY atenolol 50 mg Tablet 50 mg PO QDAY Janumet XR 50-1,000 mg Tablet, Er Multiphase 24 Hr 1 tab PO BID Jardiance 25 mg Tablet 25 mg PO QAM acetaminophen [Aminofen] 325 mg tablet 325 mg PO QID PRN (Reason: pain) Qty: 30 0RF atorvastatin 80 mg tablet 80 mg PO QPM Qty: 30 0RF meclizine 12.5 mg tablet 12.5 mg PO TID PRN (Reason: dizziness) Qty: 20 0RF Problem List Clinical Impression: Contusion of right lower extremity Patient/Caregiver Discharge Instructions Education Materials: ED Soft Tissue Contusion, ED Contusion, Lower Extremity Additional Instructions: Por favor, consulte con [facility] de [facility] en las pr?ximas 24 a 48 horas. Si nota alg?n empeoramiento de los signos o s?ntomas, acuda inmediatamente a urgencias. Print Language: Tajik Stand Alone Forms: [facility]ajal Award Info., Patient Portal Info Letter PA/BAKERY DELIVERER Supervising Physician PA/BAKERY DELIVERER Supervising Physician: Dr. Garcia
[2025-01-16] MEDS: KETOROLAC INJ 60 MG/2 ML VIAL 30 MG IM (13:19)
== END 2025-01-16 13:27 | disposition home or self-care (01) ==
LOC: SERX 13:27
PROVIDERS: Emergency Provider Nurse Practitioner Family; PCP Family Medicine
DX: S80.11XA Contusion of right lower leg, initial encounter (principal); E11.9 Type 2 diabetes mellitus without complications; E78.5 Hyperlipidemia, unspecified; I10 Essential (primary) hypertension; Z79.84 Long term (current) use of oral hypoglycemic drugs; W22.8XXA Striking against or struck by other objects, initial encounter
CPT/HCPCS: 96372; 99282; J1885